=== PATIENT | female | born 1965 | race Caucasian/White ===

== ENCOUNTER → 2020-07-23 08:12 | Outpatient (BNVA) | payer BC, OTHER, SELFPAY | PROVIDERS: PCP Physician Assistant; Referring Provider Physician Assistant; Visit Provider Physician Assistant | DX: Z76.89 Persons encountering health services in other specified circumstances (principal) ==

== ENCOUNTER 2020-07-24 09:49 | Outpatient (REF) | payer BC, OTHER, SELFPAY ==
[2020-07-24 11:46] LABS: MANUAL DIFF FLAG NO
[2020-07-24 11:51] LABS: Basophils Percent Auto 0.8 % (0-2); Eosinophils Absolute Auto 0.2 X10*3/uL (0.0-0.4); Eosinophils Percent Auto 4.3 % (0-4); Hemoglobin 13.6 g/dl (12.0-16.0); Imm Gran Abs Auto 0.02 X10*3/uL (0.00-0.03); Imm Gran Pct Auto 0.4 % (0.0-0.4); Lymphocytes Absolute Auto 1.7 X10*3/uL (1.2-4.9); Lymphocytes Percent Auto 35.1 % (20-40); Mean Corpuscular HGB Conc 32.4 g/dl (31.0-35.0); Mean Corpuscular Volume 86.4 fL (80-98); Mean Platelet Volume 11.4 fL (9.4-12.3); Monocytes Absolute Auto 0.3 X10*3/uL (0.1-1.2); Monocytes Percent Auto 6.2 % (2-11); Neutrophils Absolute Auto 2.6 X10*3/uL (2.0-8.3); Neutrophils Percent Auto 53.2 % (45-73); Platelet Count 268 X10*3/uL (160-400); Red Blood Count 4.86 X10*6/uL (4.20-5.50); Red Cell Distribution Width 13.3 % (11.0-16.0); White Blood Count 4.8 X10*3/uL (4.8-10.8)
[2020-07-24 12:20] LABS: Estimated Average Glucose 111 mg/dL; Hemoglobin A1C 123.9992 umol/L; Hemoglobin A1c % 5.5 %
[2020-07-24 12:25] LABS: Alanine Aminotransferase 24 U/L (0-31); Albumin Level 4.2 g/dL (3.5-5.0); Alkaline Phosphatase 99 U/L (39-117); Anion Gap 14 (12-20); Aspartate Amino Transferase 21 U/L (5-31); Bilirubin Total 0.4 mg/dL (0.0-1.0); Blood Urea Nitrogen 12 mg/dL (9-16); C Reactive Protein 0.52 mg/dL (< or = 0.50); Calcium 9.2 mg/dL (8.4-10.2); Carbon Dioxide 26 mmol/L (22-29); Chloride 106 mmol/L (96-108); Cholesterol 211 mg/dL; Estimated Glomerular Filt Rate > 60; Glucose Random 78 mg/dL (60-115); HDL Cholesterol 62 mg/dL; Iron 65 mcg/dL (30-160); LDL Cholesterol Calculated 126 mg/dl; Percent Iron Saturation 21 % (15-50); Potassium 4.7 mmol/l (3.3-5.1); Sodium 141 mmol/L (135-145); Total Iron Binding Capacity 305 mcg/dL (228-428); Total Protein 7.1 g/dL (6.5-8.0); Triglycerides 118 mg/dL; Unsaturated Iron Binding 240 ug/dL
[2020-07-24 12:47] LABS: Ferritin 133 ng/mL (10-250)
[2020-07-24 13:36] LABS: Folate 12.3 ng/mL (> or = 4.0); Vitamin B12 339 pg/mL (200-900)
[2020-07-25 22:22] LABS: Insulin Level Total 6.4 uIU/mL
[2020-07-26 23:07] LABS: Calcium (PTHI) 9.2 mg/dL (8.6-10.4); PTHI 59 pg/mL (14-64)
[2020-07-27 16:02] LABS: Zinc 75 mcg/dL (60-130)
[2020-07-28 16:46] LABS: Vitamin A 35 mcg/dL (38-98)
[2020-07-29 10:42] LABS: Vitamin B1 13 nmol/L (8-30)
[2020-07-30 15:57] LABS: Thyrotropin Receptor Antibody <1.00 IU/L (<=2.00)
== END 2020-07-24 09:50 | disposition home or self-care (01) ==
LOC: HO.LAB 09:49
PROVIDERS: PCP Physician Assistant; Visit Provider Physician Assistant
DX: E66.9 Obesity, unspecified (principal)
CPT/HCPCS: 36415; 80053; 80061; 82306; 82607; 82728; 82746; 83036; 83520; 83525; 83540; 83970; 84425; 84590; 84630; 85025; 86140

== ENCOUNTER → 2020-08-23 08:14 | Outpatient (BNVA) | payer BC, OTHER, SELFPAY | PROVIDERS: PCP Physician Assistant; Visit Provider Dietitian, Registered | DX: Z76.89 Persons encountering health services in other specified circumstances (principal) ==

== ENCOUNTER → 2020-09-18 12:33 | Outpatient (BNVA) | payer BC, OTHER, SELFPAY | PROVIDERS: Visit Provider Orthopaedic Surgery | DX: M17.0 Bilateral primary osteoarthritis of knee (principal) | CPT/HCPCS: 20610; J1040 ==

== ENCOUNTER → 2020-09-23 08:12 | Outpatient (BNVA) | payer BC, OTHER, SELFPAY | PROVIDERS: Visit Provider Physician Assistant | DX: Z76.89 Persons encountering health services in other specified circumstances (principal) ==

== ENCOUNTER 2020-12-03 13:40 | Emergency (ER) | payer BC, SELFPAY ==
--- NOTE | ~2020-12-03 | XR_ITS ---
EXAMINATION: XR KNEE, LEFT CLINICAL INFORMATION: Pain. Fall. COMPARISON: None TECHNIQUE: Four views of the left knee. FINDINGS: Bone alignment is normal. No fracture or dislocation is seen. There is arthritis at the medial femoral tibial and patellofemoral joints with joint space narrowing and osteophyte formation. There is a joint effusion. XR/XR knee LT 4V IMPRESSION: No fracture or dislocation. Arthritis and joint effusion.
[2020-12-03 13:42] VITALS: BP 147/88; PULSE 79; RESP 16; TEMP 36.6; O2SAT 98; BMI 38.2
--- NOTE | 2020-12-03 14:54 | ED_ITS ---
HPI - Fall General Chief Complaint: Fall Stated Complaint: fall - leg pain Time Seen by Provider: 12/03/20 14:00 Source: patient Mode of arrival: ambulatory Limitations: no limitations History of Present Illness HPI Narrative: Pleasant 55-year-old female presenting with complaint of left knee pain status post trip and fall on items on the floor at home. States she was bringing groceries and had her dog with her there is a area rug and dog gate issues bringing in the groceries she tripped over this for own forward onto her knee and hands. States she got up was able to ambulate however having pain in the left knee. Denies any other injuries. Denies any striking head. Not on current blood thinners. States she really has pre-existing arthritis in the bilateral knees and left knee hurts more. Denies any other injury and no prodromal symptoms prior to fall. MD complaint: fall Onset (ago): minute(s) Fall from: standing Fall witnessed: no Place fall occurred: home Loss of consciousness: none Prolonged down time: no Symptoms prior to fall: none Context: tripped/slipped Location of injury: other (Left knee) Associated symptoms (after fall): denies Related Data Previous Rx's Medication Instructions Recorded meloxicam 15 mg tablet 15 mg PO DAILY 30 Days #30 tab 11/25/20 Allergies Allergy/AdvReac Type Severity Reaction Status Date / Time No Known Allergies Allergy Unknown Unverified 06/20/20 15:57 [No Known Allergies*] ragweed Allergy Unknown Uncoded 05/27/20 00:00 Review of Systems Review of Systems: Constitutional: No Weight loss, No Fever, No Chills, No Night Sweats, No Fatigue, No Malaise ENT/Mouth: No Hearing loss, No Ear Pain, No Nasal Congestion, No Sinus Pain, No Hoarseness, No sore throat, No Rhinorrhea, No Swallowing Difficulty Eyes: No Eye Pain, No Swelling, No Redness, No Foreign Body, No Discharge, No Vision Changes Cardiovascular: No Chest Pain, No SOB, No Dyspnea on Exertion, No Orthopnea, No Edema, No Palpitations Respiratory: No Cough, No Sputum, No Wheezing, No Smoke Exposure, No Dyspnea Gastrointestinal: No Nausea, No Vomiting, No Diarrhea, No Constipation, No abdominal Pain, No Hematochezia, No Melena Genitourinary: No Hematuria, No Urinary Incontinence, No Urgency, No Flank Pain, No Urinary Flow Changes, No Hesitancy Musculoskeletal: No joint pain, No Myalgias, No Joint Swelling, left knee pain as noted per HPI Skin: No Skin Lesions, No rash Neuro: No Weakness, No Numbness, No Paresthesias, No Loss of Consciousness, No Dizziness, No Headache Psych: No Social Issues Heme/Lymph: No Bruising, No Bleeding,No Lymphadenopathy Endocrine: No Polyuria, No Polydipsia, No Temperature Intolerance Yes all other systems are reviewed and are negative [facility] Past Medical History Medical History Arthritis Benign neoplasm of left breast Ear infection Ectopic GERD (gastroesophageal reflux disease) Obesity (BMI 30-39.9) Seasonal allergies Family History Family History Father No problems noted. Mother No problems noted. Sister Hypertension Social History Social History Smoking Status: Never smoker Advance Directives: Yes Advance Directives Information Provided: Yes Advance Directives on File: No Current occupational status: employed Current occupation: Right Handed Physical Exam Vital Signs: Vital Signs: Last Vital Signs Temp 98 F 12/03/20 13:42 Pulse 79 12/03/20 13:42 Resp 16 12/03/20 13:42 BP 147/88 H 12/03/20 13:42 Pulse Ox 98 12/03/20 13:42 Body Mass Index 38.2 Reviewed Const: General: cooperative and healthy appearing; No acute distress or intoxicated appearing Nutritional Appearance: average body habitus Orientation/consciousness: patient oriented x3 HENMT: Head: Yes normal to inspection Ears: hearing grossly normal bilaterally Eyes: General: appearance normal, both eyes and all related structures Visual Montano: normal visual montano by confrontation Neck: Neck: Yes normal visual inspection, No positive Brudzinski's sign, No positive Kernig's sign and No tender Thyroid: Thyroid normal Chest: Chest palpation & inspection: normal inspection of the chest Resp: Effort & Inspection: normal respiratory effort Auscultation: clear to auscultation bilaterally Cardio: Jugular venous distension: no JVD Rate: regular rate Rhythm: regular rhythm Heart sounds: S1 normal heart sound present and S2 normal heart sound present GI: Inspection: Yes normal to inspection Percussion: Yes normal to percussion Auscultation: normal bowel sounds : General: Yes no CVA tenderness Back/Spine/Pelvis: Back: no CVA tenderness Skin: General skin exam: no rashes or lesions noted Neuro: General: patient oriented x3 Extrem: General: Yes normal to inspection Elbow/forearm/wrist images: 1. Diffuse pain over this area there is a slight ecchymosis area just superior to the patella that is yellowish to blue. Homans negative. Squeeze test within normal limits. Pulses within normals. No edema. Course Course Course Narrative: AP of mechanical fall resulting in left knee injury consistent with contusion/strain x-ray unremarkable. Vince wrap crutches and outpatient follow-up. MDM - Fall Medical Records Attestation: I reviewed the patient's medical records. Lab Data Attestation: I reviewed the patient's lab results. Imaging Data left knee x-ray: Radiologist's impression: [address] [address]KThd ReportSigned Patient: Loren McphersonMR#: [id number]: 1965Acct:[id number]/Sex: 55 / FADM Date: 12/03/20Loc: [email or web address].EDAttending Dr: Ordering Physician: Kate Sampson DO Date of Service: 12/03/20 Procedure(s): XR knee LT 4V Accession Number(s): [id number] cc: Kate Sampson DO~ EXAMINATION: XR KNEE, LEFT CLINICAL INFORMATION: Pain. Fall. COMPARISON: None TECHNIQUE: Four views of the left knee. FINDINGS: Bone alignment is normal. No fracture or dislocation is seen. There is arthritis at the medial femoral tibial and patellofemoral joints with joint space narrowing and osteophyte formation. There is a joint effusion. XR/XR knee LT 4V IMPRESSION: No fracture or dislocation. Arthritis and joint effusion. Dictated By:SABINO WILCOXigned By:<Electronically signed by SABINO WILCOX MD in OV>12/03/20 1427 DD/ 1400TD/TT: Senior Research Fellow: ELENITA Discharge Plan Discharge Clinical Impression: Fall from slip, trip, or stumble Qualifiers: Encounter type: initial encounter Qualified Code(s): W01.0XXA - Fall on same level from slipping, tripping and stumbling without subsequent striking against object, initial encounter Contusion of knee, left Qualifiers: Encounter type: initial encounter Qualified Code(s): S80.02XA - Contusion of left knee, initial encounter Patient Disposition: Home, Self-Care Instructions: Knee Pain (ED), Fall Prevention (ED) Additional Instructions: The x-ray does not show any evidence of acute bony fracture There is arthritis and slight effusion At this time Vince wrap, crutches for comfort Ice Naproxen for pain discomfort Gradually increase weight-bearing with crutches as tolerated Follow-up with orthopedics as needed Thank you Prescriptions: No Action meloxicam 15 mg tablet 15 mg PO DAILY 30 Days Qty: 30 RF: 1 Referrals: Yun iRggins MD [Physician] - 1 week Interventions: ED Discharge Assessment Last Done: 12/03/20 15:23 Discharge Date/Time: 12/03/20 15:23
== END 2020-12-03 15:23 | disposition home or self-care (01) ==
PROVIDERS: Emergency Provider Emergency Medicine; PCP Physician Assistant
DX: S80.02XA Contusion of left knee, initial encounter (principal); W18.31XA Fall on same level due to stepping on an object, initial encounter; Y93.89 Activity, other specified; Y92.019 Unspecified place in single-family (private) house as the place of occurrence of the external cause; Y99.9 Unspecified external cause status
CPT/HCPCS: 73564; 99283

== ENCOUNTER 2022-02-25 15:26 | Outpatient (REF) | payer BC, SELFPAY ==
[2022-02-25 16:10] LABS: Hematocrit 40.3 % (37.0-47.0); Hemoglobin 13.1 g/dl (12.0-16.0); Mean Corpuscular HGB Conc 32.5 g/dl (31.0-35.0); Mean Corpuscular Hemoglobin 27.8 pg (27.0-33.0); Mean Corpuscular Volume 85.4 fL (80.0-98.0); Mean Platelet Volume 11.3 fL (9.4-12.3); Platelet Count 289 X10*3/uL (160-400); Red Blood Count 4.72 X10*6/uL (4.20-5.50); Red Cell Distribution Width 13.7 % (11.0-16.0); White Blood Count 7.8 X10*3/uL (4.8-10.8)
[2022-02-25 16:27] LABS: Anion Gap 12 (12-20); Blood Urea Nitrogen 17 mg/dL (9-16); Calcium 9.5 mg/dL (8.4-10.2); Carbon Dioxide 26 mmol/L (22-29); Chloride 108 mmol/L (96-108); Estimated Glomerular Filt Rate > 60; Glucose Random 95 mg/dL (60-115); Iron 57 mcg/dL (30-160); Percent Iron Saturation 18 % (15-50); Potassium 4.1 mmol/L (3.3-5.1); Sodium 142 mmol/L (135-145); Total Iron Binding Capacity 310 mcg/dL (228-428); Unsaturated Iron Binding 253 ug/dL
[2022-02-25 16:51] LABS: Vitamin D 25-OH Total 32.4 ng/mL (>30)
[2022-02-25 17:04] LABS: Vitamin B12 575 pg/mL (200-900)
[2022-02-26 15:02] LABS: Calcium (PTHI) 9.4 mg/dL (8.6-10.4); PTHI 55 pg/mL (16-77)
[2022-02-27 05:02] LABS: Lyme Abs Screen <0.90 index
[2022-03-03 19:32] LABS: Vitamin A 32 mcg/dL (38-98)
== END 2022-02-25 15:27 | disposition home or self-care (01) ==
LOC: HO.LAB 15:26
PROVIDERS: PCP Physician Assistant; Visit Provider Physician Assistant
DX: F32.A Depression, unspecified (principal); R53.83 Other fatigue; E53.8 Deficiency of other specified B group vitamins; D50.9 Iron deficiency anemia, unspecified
CPT/HCPCS: 36415; 80048; 82306; 82607; 82746; 83540; 83735; 83970; 84590; 85027; 86617; 86618

== ENCOUNTER 2022-06-14 11:18 | Emergency (ER) | payer BC, SELFPAY ==
[2022-06-14 11:20] VITALS: BP 137/74; PULSE 76; RESP 18; TEMP 37.2; O2SAT 97; BMI 37.4
--- NOTE | 2022-06-14 11:38 | ED_ITS ---
HPI - General Adult General Chief complaint: General Medical Stated complaint: Ear infection/Belly button infection? Time Seen by Provider: 06/14/22 11:38 Source: patient Mode of arrival: ambulatory Limitations: no limitations History of Present Illness HPI narrative: Patient is a 57 year old female presenting to the emergency department today feeling generally unwell after returning from a trip to [facility] and the [facility]. Patient states that she just returned from traveling yesterday and was feeling generally unwell. Patient states that she had a positive COVID-19 test at home. Patient states that her left ear is bothering her and her belly button seems to be infected. Patient denies any dizziness, lightheadedness, abdominal pain, nausea, vomiting, fever, chills, blurry vision, double vision, loss of vision, chest pain, difficulty breathing, shortness of breath, back pain, night sweats, pain with urination, increased urinary frequency, increased urinary urgency, blood in her urine or stool, syncope or a near syncopal episode, recent trauma or falls, bowel incontinence, bladder incontinence, bowel retention, bladder retention, or any other complaints at this time.? Onset (ago): day(s) (1) Severity: mild Severity scale (1-10): 1 Relieving factors: none Exacerbating factors: none Associated symptoms: denies other symptoms Treatments prior to arrival: none Related Data Previous Rx's Medication Instructions Recorded lorazepam 0.5 mg tablet 0.5 mg PO BID anxiety 4 days #8 12/30/21 tabs meloxicam 15 mg tablet 15 mg PO DAILY 30 days #30 tabs 12/30/21 fluconazole 150 mg tablet 150 mg PO Q3D 2 doses #2 tabs 06/14/22 (Diflucan) terbinafine HCl 1 % topical cream 1 appl topical BID #15 grams 06/14/22 (Lamisil AT) Allergies Allergy/AdvReac Type Severity Reaction Status Date / Time No Known Allergies Allergy Unknown Verified 02/25/22 14:46 [No Known Allergies*] ragweed Allergy Unknown Allergic Uncoded 02/25/22 14:46 rhinitis Review of Systems Constitutional: Constitutional: Reports no additional constitutional complaints, Denies chills, Denies fever(s) and Denies night sweats Eyes: Eyes: Reports no additional eye complaints, Denies blurry vision, Denies change in vision, Denies diplopia, Denies eye discharge, Denies loss of vision and Denies eye pain ENT: Denies dizziness Comments: left ear pain Cardiovascular: Cardiovascular: Reports no additional cardiovascular complaints, Denies chest pain, Denies lightheadedness, Denies Loss of Consciousness and Denies dyspnea Respiratory: Respiratory: Reports no additional respiratory complaints and Denies dyspnea Gastrointestinal: Gastrointestinal: Reports no additional gastrointestinal complaints, Denies abdominal pain, Denies melena, Denies hematochezia, Denies change in bowel habits and Denies change in stool character Genitourinary: Genitourinary: Denies hematuria, Denies urinary frequency, Denies dysuria, Denies urinary incontinence, Denies urinary hesitancy and Denies urinary urgency Musculoskeletal: Musculoskeletal: Reports no additional musculoskeletal complaints, Denies numbness and Denies tingling Integumentary/Breasts: Comments: possible belly button infection Neurologic: Denies dizziness, Denies loss of vision, Denies numbness and Denies tingling Psychiatric: Psychiatric: Reports no additional psychiatric complaints Endocrine: Endocrine: Reports no additional endocrine complaints Hematologic/Lymphatic: Hematologic/Lymphatic: Reports no additional hematologic/lymphatic complaints Allergic/Immunologic: Allergic/Immunologic: Reports no additional allergic/immunologic complaints [facility] Past Medical History Attestation statement: The following information was validated with the patient. Source: old records reviewed Medical History Arthritis Benign neoplasm of left breast Ear infection Ectopic GERD (gastroesophageal reflux disease) Obesity (BMI 30-39.9) Seasonal allergies Family History Family History Father No problems noted. Mother No problems noted. Sister Hypertension Social History Social History Housing: House Patient Tobacco Use Status: Never used Tobacco e-Cigarette/Vaping Use: Never Used Advance Directives: Yes Advance Directives Information Provided: Yes Advance Directives on File: No Current occupational status: employed Current occupation: Right Handed Cognitive needs: No Hearing needs: No Vision needs: Yes Physical Exam ED Vital Signs: Vital Signs - 24 hr 06/14/22 11:20 Temperature 98.9 F Pulse Rate 76 Respiratory Rate 18 Blood Pressure 137/74 Pulse Oximetry 97 Oxygen Delivery Method Room Air BMI result Body Mass Index 37.4 Const General: cooperative, no acute distress, alert and awake Nutritional Appearance: well nourished Orientation/consciousness: patient oriented x3 Limitations: no limitations HENMT Head: Yes normal to inspection and Yes atraumatic Ears: hearing grossly normal bilaterally, external ears normal and TM's normal bilaterally General nose exam: Normal external nose present, no nasal discharge noted and no epistaxis Face and sinus: Yes normal facial exam, No abrasion and No laceration Mouth: Normal oral and palatal mucosa present, no drooling and no muffled voice Eyes General: appearance normal, both eyes and all related structures Periorbital: periorbital findings normal Eyelids: Yes eyelids normal Conjunctivae: conjunctivae normal Pupils: Equal, round and reactive pupils present EOM: EOMs intact bilaterally Neck Neck: Yes normal visual inspection, Yes full ROM and Yes no lymphadenopathy Chest Chest palpation & inspection: normal inspection of the chest Resp Effort & Inspection: normal respiratory effort and able to speak in complete sentences Auscultation: clear to auscultation bilaterally Cardio Rate: regular rate Rhythm: regular rhythm GI Inspection: Yes normal to inspection Skin Other: erythema to the inside of the umbilicus Neuro General: patient oriented x3 and moves all extremities Cranial nerves: Yes Equal, round and reactive pupils present Cognition (Neuro): normal cognition Motor exam (neuro): 5/5 motor strength present throughout Sensory Exam: Normal double simultaneous stimulation for sensation Coordination: [id number] test normal Extrem General: Yes normal to inspection, Yes full ROM and Yes capillary refill normal Psych Appearance: grossly normal Mental Status: mental status grossly normal Affect: normal affect Attitude: cooperative Thought process: Normal thought process present Thought content: Normal thought content present Insight: Good insight present (Psych) Medical Decision Making [facility] Narrative Medical decision making narrative: Patient is a 57 year old female presenting to the emergency department today feeling generally unwell, left ear pain, and a possible umbilicus infection. Patient's physical exam did some erythema of the umbilicus consistent with a yeast infection. Patient's HEENT exam was normal. Patient's rapid COVID-19 test was positive. I explained my physical exam findings as well as all test results to the patient. I answered all questions asked by the patient. I stressed the importance of the patient taking her medication as prescribed. I stressed the importance of the patient following up with her primary care provider. I str essed the importance of the patient returning to the emergency department immediately if her symptoms were to worsen or if she were to develop any dizziness, shortness of breath, difficulty breathing, chest pain, blurry vision, loss of vision, nausea, vomiting, abdominal pain, fever, chills, back pain, or any other complaints. Patient verbalized agreement and understanding with this treatment plan and discharge. Medical Records Medical records reviewed: Yes I reviewed the patient's medical records. Lab Data Lab results reviewed: Yes I reviewed the patient's lab results. Labs: Lab Results 06/14/22 Range/Units 11:31 COVID-19 (REE) Positive A (Negative) COVID-19 Clin Com See Note Discharge Plan Discharge Clinical Impression: COVID-19, Yeast infection Patient Disposition: Home, Self-Care Instructions: Yeast Infection (ED), COVID-19 (Coronavirus Disease 2019) (ED) Additional Instructions: Follow up with your primary care provider. Return to the emergency department immediately if your symptoms worsen or if you develop any dizziness, shortness of breath, difficulty breathing, chest pain, blurry vision, loss of vision, nausea, vomiting, abdominal pain, fever, chills, back pain, or any other complaints. Prescriptions: New fluconazole [Diflucan] 150 mg tablet 150 mg PO Q3D Qty: 2 0RF terbinafine HCl [Lamisil AT] 1 % cream 1 appl topical BID Qty: 15 0RF No Action lorazepam 0.5 mg tablet 0.5 mg PO BID 4 Days Qty: 8 0RF meloxicam 15 mg tablet 15 mg PO DAILY 30 Days Qty: 30 1RF Referrals: Jon Maldonado PA-C [Primary Care Provider] - Stand Alone Forms: Work/School Release Interventions: ED Discharge Assessment Last Done: 06/14/22 12:31 Discharge Date/Time: 06/14/22 12:32 Print Language: Angolan
[2022-06-14 12:08] LABS: COVID-19 Test Positive (Negative); IDNOW Serial# 16C4AD1C
== END 2022-06-14 12:32 | disposition home or self-care (01) ==
PROVIDERS: Emergency Provider Emergency Medicine; PCP Physician Assistant
DX: U07.1 COVID-19 (principal); Z79.899 Other long term (current) drug therapy
CPT/HCPCS: 87635; 99282

== ENCOUNTER 2023-01-18 10:13 | Outpatient (REF) | payer BC, SELFPAY ==
[2023-01-18 12:34] LABS: Alanine Aminotransferase 17 U/L (0-31); Albumin Level 4.2 g/dL (3.5-5.0); Alkaline Phosphatase 108 U/L (39-117); Anion Gap 12 (12-20); Aspartate Amino Transferase 16 U/L (5-31); Bilirubin Total 0.7 mg/dL (0.0-1.0); Blood Urea Nitrogen 18 mg/dL (9-16); Calcium 9.5 mg/dL (8.4-10.2); Carbon Dioxide 26 mmol/L (22-29); Chloride 107 mmol/L (96-108); Cholesterol 211 mg/dL; Estimated Glomerular Filt Rate > 60; Glucose Fasting 86 mg/dL (60-99); HDL Cholesterol 63 mg/dL; LDL Cholesterol Calculated 123 mg/dl; Magnesium 1.7 mg/dL (1.6-2.6); Potassium 4.7 mmol/L (3.3-5.1); Sodium 140 mmol/L (135-145); Total Protein 6.7 g/dL (6.5-8.0); Triglycerides 128 mg/dL
[2023-01-18 12:43] LABS: Folate 9.8 ng/mL (> or = 4.0); TSH reflex Free T4 1.73 uIU/mL (0.32-4.0); Vitamin B12 582 pg/mL (200-900); Vitamin D 25-OH Total 36.2 ng/mL (>30)
[2023-01-24 23:44] LABS: Vitamin A 38 mcg/dL (38-98)
== END 2023-01-18 10:14 | disposition home or self-care (01) ==
LOC: HO.LAB 10:13
PROVIDERS: PCP Physician Assistant; Visit Provider Physician Assistant
DX: Z13.29 Encounter for screening for other suspected endocrine disorder (principal); Z13.220 Encounter for screening for lipoid disorders; E53.8 Deficiency of other specified B group vitamins; E66.9 Obesity, unspecified; F32.9 Major depressive disorder, single episode, unspecified
CPT/HCPCS: 36415; 80053; 80061; 82306; 82607; 82746; 83735; 84443; 84590

== ENCOUNTER 2024-01-27 19:39 | Emergency (ER) | payer BC, SELFPAY ==
[2024-01-27 19:57] VITALS: BP 148/87; PULSE 67; RESP 16; TEMP 36.1; O2SAT 100; BMI 37.9
--- NOTE | 2024-01-27 19:57 | ED.GENADULT ---
HPI - General Adult General Chief complaint: Headache Stated complaint: headache ? high blood pressure Time Seen by Provider: 01/28/24 00:30 Source: patient, RN notes reviewed and old records reviewed Mode of arrival: ambulatory Limitations: no limitations History of Present Illness HPI narrative: 59-year-old female who denies any significant past medical history presents for evaluation of high blood pressure and ?feeling like I was going to pass out. ? Patient reports that she was on a work call yesterday. She states that she started to feel lightheaded and like her heart was racing She felt as though she was going to pass out Patient reports this has happened in the past and ?they told me I had some type of tachycardia and to massage my neck if it happened again. Therefore the patient reports that she was massaging the right side of her neck and her symptoms did improve She also complains of a headache over the last 2 days She took aspirin with good relief of her headache Patient denies any known history of high blood pressure but states that her blood pressures have been elevated over last few days Denies any chest pain Today she had not have any symptoms of near-syncope or family she was born to pass out but when she called her doctor there were no appointments, so she was referred to the ER Related Data Previous Rx's ?Medication ?Instructions ?Recorded amoxicillin 875 mg-potassium 1 tab PO BID 5 days #10 tabs 12/23/22 clavulanate 125 mg tablet mupirocin 2 % topical ointment 1 appl topical BID 15 days #22 12/23/22 grams meloxicam 15 mg tablet 15 mg PO DAILY 30 days #30 tabs 07/05/23 cefuroxime axetil 250 mg tablet 250 mg PO BID #10 tabs 01/28/24 Allergies Allergy/AdvReac Type Severity Reaction Status Date / Time ragweed Allergy Unknown Allergic Uncoded 01/27/24 20:01 rhinitis Review of Systems Constitutional: Constitutional: Denies body ache(s), Denies chills and Denies fever(s) Eyes: Eyes: Denies blurry vision ENT: Denies sore throat Cardiovascular: Cardiovascular: Denies chest pain, Reports lightheadedness, Reports palpitations and Denies dyspnea Respiratory: Respiratory: Denies cough and Denies dyspnea Gastrointestinal: Gastrointestinal: Denies abdominal pain, Denies nausea and Denies vomiting Musculoskeletal: Musculoskeletal: Denies back pain Integumentary/Breasts: Skin/Breast: Denies rash Endocrine: Endocrine: Reports palpitations PMFSH Past Medical History Medical History Arthritis Benign neoplasm of left breast Ear infection Ectopic GERD (gastroesophageal reflux disease) Obesity (BMI 30-39.9) Seasonal allergies Family History Family History Father No problems noted. Mother No problems noted. Sister Hypertension Social History Social History Housing: House Patient Tobacco Use Status: Never used Tobacco Smoked in Last 30 Days: No e-Cigarette/Vaping Use: Never Used Advance Directives: No Advance Directives Information Provided: No Do you have a plan to hurt others: No Plan Current occupational status: employed Current occupation: Right Handed Cognitive needs: No Hearing needs: No Vision needs: Yes Physical Exam ED Vital Signs: Vital Signs - 24 hr 01/27/24 19:57 01/27/24 23:47 01/28/24 01:15 Temperature 96.9 F 98 F Pulse Rate 67 63 52 Respiratory Rate 16 18 Blood Pressure 148/87 H 147/95 H 154/80 H Pulse Oximetry 100 98 Oxygen Delivery Method Room Air Room Air 01/28/24 01:15 01/28/24 01:17 Temperature Pulse Rate 57 70 Respiratory Rate Blood Pressure 161/88 H 150/95 H Pulse Oximetry Oxygen Delivery Method BMI result Body Mass Index 37.9 Const General: healthy appearing, comfortable, no acute distress, alert and awake Nutritional Appearance: well nourished Orientation/consciousness: patient oriented x3 HENMT Head: Yes normocephalic and Yes atraumatic Eyes Eyelids: Yes eyelids normal Conjunctivae: conjunctivae normal Sclerae: sclerae normal Corneas: corneas normal Pupils: Equal, round and reactive pupils present EOM: EOMs intact bilaterally Neck Neck: Yes full ROM Resp Effort & Inspection: normal respiratory effort, able to speak in complete sentences, no audible wheezes and not labored Auscultation: clear to auscultation bilaterally Cardio Rate: regular rate Rhythm: regular rhythm GI Inspection: No distended Palpation (GI): Soft to palpation, not firm, nontender, no guarding and not rigid Auscultation: normoactive bowel sounds Skin General skin exam: elasticity normal Neuro General: patient oriented x3 Cranial nerves: Yes Equal, round and reactive pupils present and Yes Bilaterally intact EOM present Cognition (Neuro): normal cognition Extrem Other: Moving all extremities well without any obvious deformities Course Course Course Narrative: This is a rapid medical exam: Additional HPI, ROS, PE not included below will be deferred to primary provider. Patient is a 59-year-old female presenting to the emergency department with complaint of headache, episodes of HTN, just bought BP monitor yesterday. Has been taking ASA because she's heard to take that if you think you're having a heart attack. Also reports some anxiety. BP mildly elevated in triage. Plan: EKG, labs, viral swabs Reevaluation(s) Reevaluation #1: Patient's UA does show a small amount of blood, 2+ leukocyte esterase and 21-50 white blood cells with no epithelial cells to suggest contamination. She is symptomatic with frequent urination. We will treat as a UTI Time: 01:30 Medical Decision Making Medical Decision Making MDM Narrative: 59-year-old female presents for evaluation of a near syncopal episode that happened over 24 hours ago. Currently she is asymptomatic except for a mild headache. She is neurologically intact. She denies any chest pain. Patient's EKG shows normal sinus rhythm with a rate of 60 beats minute. No ectopy, no ischemic changes. Patient's workup is largely unremarkable, her hematologic indices show no leukocytosis or anemia. Normal platelet count. There is no left shift. Her chemistries show no significant electrolyte abnormalities. Her BUN is slightly elevated to 18 which is consistent where it was about a year ago. Creatinine is 0.78 and GFR is greater than 60. Patient's troponin is less than 2.7 and she is not experiencing chest pain. LFTs within normal limits. The patient also had viral swabs which were negative. I did orthostatics and her vital signs showed a slight increase in her heart rate. Her blood pressures remain largely unchanged. I did discuss IV fluids for the orthostatic tachycardia but the patient declines. She would like to go home at this time and she will hydrate orally. The patient will be referred to Cardiology as she reports this is not the 1st tetanus has happened Differential Diagnosis Differential Diagnoses: The differential diagnosis associated with the presentation includes Near syncope Syncope Arrhythmia Orthostasis Lab Data [facility] Lab Attestation statement: I reviewed the patient's lab results. See above 01/27/24 20:13 01/27/24 20:13 Labs: Lab Results 01/27/24 01/27/24 Range/Units 20:13 23:51 WBC 8.6 (4.8-10.8) X10*3/uL RBC 5.30 (4.20-5.50) X10*6/uL Hgb 14.3 (12.0-16.0) g/dl Hct 43.9 (37.0-47.0) % MCV 82.8 (80.0-98.0) fL MCH 27.0 (27.0-33.0) pg MCHC 32.6 (31.0-35.0) g/dl RDW 14.0 (11.0-16.0) % Plt Count 294 (160-400) X10*3/uL MPV 10.8 (9.4-12.3) fL Immature Gran % (Auto) 0.5 H (0.0-0.4) % Neut % (Auto) 66.4 (45-73) % Lymph % (Auto) 26.0 (20-40) % [place] % (Auto) 5.9 (2-11) % Eos % (Auto) 0.5 (0-4) % Baso % (Auto) 0.7 (0-2) % Lymph # (Auto) 2.2 (1.2-4.9) X10*3/uL [place] # (Auto) 0.5 (0.1-1.2) X10*3/uL Eos # (Auto) 0.0 (0.0-0.4) X10*3/uL Baso # (Auto) 0.1 (0.0-0.2) X10*3/uL Abs Immat Gran (auto) 0.04 H (0.00-0.03) X10*3/uL Absolute Neuts (auto) 5.7 (2.0-8.3) x10*3/uL Absolute Nucleated RBC 0.000 (0.0-0.012) X10*3/uL Nucleated RBC % (auto) 0.0 (0.0-0.2) /100WBC Sodium 140 (135-145) mmol/L Potassium 4.3 (3.3-5.1) mmol/L Chloride 104 (96-108) mmol/L Carbon Dioxide 27 (22-29) mmol/L Anion Gap 13 (12-20) BUN 18 H (9-16) mg/dL Creatinine 0.78 (0.5-1.4) mg/dL Estim Creat Clear Calc 88.2 Estimated GFR > 60 Random Glucose 92 (60-115) mg/dL Calcium 9.6 (8.4-10.2) mg/dL Total Bilirubin 0.4 (0.0-1.0) mg/dL AST 12 (5-31) U/L ALT 15 (0-31) U/L Alkaline Phosphatase 97 (39-117) U/L Troponin I High Sens < 2.7 (<3.5-17.0) ng/L Total Protein 7.2 (6.5-8.0) g/dL Albumin 4.2 (3.5-5.0) g/dL Urine Color Yellow Urine Appearance Clear Urine pH 5.0 (5.0-9.0) Ur Specific [place] 1.020 (1.005-1.025) Urine Protein Negative (Neg-Trace) mg/dL Urine Glucose (UA) Negative (Negative) mg/dL Urine Ketones Trace (Negative) mg/dL Urine Blood Trace H (Negative) Urine Nitrite Negative (Negative) Ur Leukocyte Esterase Moderate (2+) H (Negative) Urine RBC 0-2 (0-2) /HPF Urine WBC 21-50 H (0-5) /HPF Ur Squamous Epith Cells 0-2 (0-2) /HPF Urine Bacteria None Seen (None Seen) Hyaline Casts 0-2 (0-2) /LPF Influenza Type A (PCR) NEGATIVE (Negative) Influenza Type B (PCR) NEGATIVE (Negative) RSV RNA Qual (PCR) NEGATIVE (Negative) SARS-CoV-2 RNA (RT-PCR) NEGATIVE (Negative) Independent Interpretation I performed an independent interpretation of an: EKG Interpretation: See above Discharge Plan Discharge Clinical Impression: Near syncope, Urinary tract infection Patient Disposition: Home, Self-Care Instructions: Urinary Tract Infection in Women (ED), Near Syncope (ED) Additional Instructions: Your workup in the ER today was reassuring. This includes your blood work, EKG. Your urine sample did show a UTI Take the cefuroxime twice daily for 5 days I recommend increasing fluid intake Follow-up with your primary doctor I put in a referral to Cardiology, call tomorrow to make an appointment for near-syncope Prescriptions: New cefuroxime axetil 250 mg tablet 250 mg PO BID Qty: 10 0RF No Action mupirocin 2 % ointment 1 appl topical BID 15 Days Qty: 22 0RF amoxicillin-pot clavulanate 875-125 mg tablet 1 tab PO BID 5 Days Qty: 10 0RF meloxicam 15 mg tablet 15 mg PO DAILY 30 Days Qty: 30 1RF Referrals: Gino Tom MD [Physician] - (near syncope) Print Language: [place] African
--- NOTE | 2024-01-27 20:00 | ECG_ITS ---
Test Reason : MIGRAINE Blood Pressure : / mmHG Vent. Rate : 060 BPM Atrial Rate : 060 BPM P-R Int : 138 ms QRS Dur : 078 ms QT Int : 388 ms P-R-T Axes : 047 050 028 degrees QTc Int : 388 ms Normal sinus rhythm Normal ECG When compared to the previous EKG of No significant changes seen Referred By: Neela Lee Electronically Signed By:NICKI MILLER MD
[2024-01-27 20:18] LABS: MANUAL DIFF FLAG NO
[2024-01-27 20:25] LABS: Basophils Absolute Auto 0.1 X10*3/uL (0.0-0.2); Basophils Percent Auto 0.7 % (0-2); Eosinophils Percent Auto 0.5 % (0-4); Hematocrit 43.9 % (37.0-47.0); Hemoglobin 14.3 g/dl (12.0-16.0); Imm Gran Abs Auto 0.04 X10*3/uL (0.00-0.03); Imm Gran Pct Auto 0.5 % (0.0-0.4); Lymphocytes Absolute Auto 2.2 X10*3/uL (1.2-4.9); Mean Corpuscular HGB Conc 32.6 g/dl (31.0-35.0); Mean Corpuscular Volume 82.8 fL (80.0-98.0); Mean Platelet Volume 10.8 fL (9.4-12.3); Monocytes Absolute Auto 0.5 X10*3/uL (0.1-1.2); Monocytes Percent Auto 5.9 % (2-11); Neutrophils Absolute Auto 5.7 x10*3/uL (2.0-8.3); Neutrophils Percent Auto 66.4 % (45-73); Platelet Count 294 X10*3/uL (160-400); White Blood Count 8.6 X10*3/uL (4.8-10.8)
[2024-01-27 20:38] LABS: Alanine Aminotransferase 15 U/L (0-31); Albumin Level 4.2 g/dL (3.5-5.0); Alkaline Phosphatase 97 U/L (39-117); Anion Gap 13 (12-20); Aspartate Amino Transferase 12 U/L (5-31); Bilirubin Total 0.4 mg/dL (0.0-1.0); Blood Urea Nitrogen 18 mg/dL (9-16); Calcium 9.6 mg/dL (8.4-10.2); Carbon Dioxide 27 mmol/L (22-29); Chloride 104 mmol/L (96-108); Glucose Random 92 mg/dL (60-115); Potassium 4.3 mmol/L (3.3-5.1); Sodium 140 mmol/L (135-145); Total Protein 7.2 g/dL (6.5-8.0)
[2024-01-27 20:51] LABS: Creatinine Clr Calc Pharmacy 88.2; Estimated Glomerular Filt Rate > 60; Troponin-I High Sensitivity < 2.7 ng/L (<3.5-17.0)
[2024-01-27 20:57] LABS: Influenza A PCR NEGATIVE (Negative); Influenza B PCR NEGATIVE (Negative); Resp Syncy Virus RNA Qual PCR NEGATIVE (Negative); SARS COV2 PCR INHOUSE NEGATIVE (Negative)
[2024-01-27 23:47] VITALS: BP 147/95; PULSE 63; RESP 18; TEMP 36.6; O2SAT 98
[2024-01-28 00:04] LABS: Appearance Urine Clear; Color Urine Yellow; Glucose Urine UA Negative (Negative); Leukocyte Esterase Urine Moderate (2+) (Negative); Nitrite Urine Negative (Negative); UMIC TRIGGER UACC YES; Urine Blood Trace (Negative); Urine Ketones Trace mg/dL (Negative); Urine Protein Negative (Neg-Trace)
--- OUTSIDE RECORDS SUMMARY | 2024-01-28 00:07 | XMS_ITS | Continuity of Care Document ---
Author Organization [facility] ter Address [address] [place] [id number]- Care Team Providers Care Early [employer] Teacher Name Role Phone Jon Henley Primary Care Physician [phone] Encounter [facility] [place] Date(s): 03/02/23 - 03/02/[address] [id number] Discharge Disposition: A-D/C Home Attending Physician: Luis A Garnica MD Admitting Physician: Luis A Garnica MD Referring Physician: Luis A Garnica MD Allergies, Adverse Reactions, Alerts Substance Reaction Severity Status Ragweed Active Medications B Complex 100 0 Refills, Maintenance, 05/19/22 11:40:00 EDT, Partial fill upon patient request if the prescription is for a schedule II opioid drug. Start Date: 05/19/22 Status: Ordered Meloxicam Daily, 0 Refills, Maintenance, 05/19/22 11:39:00 EDT, Partial fill upon patient request if the prescription is for a schedule II opioid drug. Start Date: 05/19/22 Status: Ordered Nexium 40 mg oral enteric coated capsule 1 capsule = 40 mg, By Mouth, Daily, prn, # 30 capsule, 0 Refills, Maintenance, 08/08/12 12:32:04 EST, EC Capsule Start Date: 08/08/12 Status: Ordered Vitamin A = 50,000 International_Units, Intramuscular, Daily, 0 Refills, Maintenance, 05/19/22 11:39:00 EDT, Partial fill upon patient request if the prescription is for a schedule II opioid drug. Start Date: 05/19/22 Status: Ordered Vitamin D3 400 intl units oral capsule 1 capsule = 10 mcg, By Mouth, Daily, 0 Refills, Maintenance, 05/19/22 11:39:00 EDT, Partial fill upon patient request if the prescription is for a schedule II opioid drug. Start Date: 05/19/22 Status: Ordered Problem List Condition Confirmation Course Effective Dates Status Health St atus Informant Obese class II Confirmed Active Vital Signs Most recent to oldest [Reference Range]: 1 2 3 Height 162.6 cm (03/02/23 12:56 PM) Weight 99.3 kg (03/02/23 12:56 PM) Oxygen Saturation [94-100 %] 96 % (03/02/23 2:29 PM) 97 % (03/02/23 2:25 PM) 99 % (03/02/23 2:20 PM) Pulse Rate [55-90 bpm] 81 bpm (03/02/23 12:56 PM) Body Mass Index [18.5-24.99 kg/m2] 37.56 kg/m2 *>HHI* (03/02/23 12:56 PM) Blood Pressure [90-138/55-84 mm Hg] 124/77mm Hg (03/02/23 2:29 PM) 127/76mm Hg (03/02/23 2:25 PM) 118/70mm Hg (03/02/23 2:20 PM) Respiratory Rate [16-30 br/min] 17 br/min (03/02/23 2:29 PM) 16 br/min (03/02/23 2:25 PM) 18 br/min (03/02/23 2:20 PM) Temperature [96.8-100.4 DegF] 96.4 DegF *L* (03/02/23 12:56 PM) Mode of Delivery (Oxygen) Room air (03/02/23 2:29 PM) Room air (03/02/23 2:25 PM) Room air (03/02/23 2:20 PM) Blood pressure sites Arm, left (03/02/23 12:56 PM) Temperature Route Temporal (03/02/23 12:56 PM) Weight Obtained Via Patient/family state d (03/02/23 12:56 PM) Social History Social History Type Response Smoking Status Never smoker entered on: 05/03/16 Sex Note * Chloe Farris RN: PERFORM Event Display: Discharge/Transfer Note Hospital Authored Date: [id number] Nursing Discharge Note Entered On: 03/02/2023 14:19 EDT Performed On: 03/02/2023 14:19 EDT by Chloe Farris RN Nursing Discharge Note 2 Discharge Time : 03/02/2023 15:00 EDT Chloe Farris RN - 03/02/2023 15:01 EDT Discharge Level of Care at Discharge : Home/Care Home/Foster Care Patient Left Unit Via : Wheelchair Patient Accompanied Off Unit with : Responsible adult DC Instructions Provided & Signed by Pt : Yes Patient Understands D/C Instructions : Yes Patient Instructions Discharge Signed : Yes Did Pt have Specialty Bed or Wound Vac : No Chloe Farris RN - 03/02/2023 14:19 EDT * Chloe Farris RN: PERFORM Event Display: Patient Education/Instruction Authored Date: [id number] Inpatient Adult Discharge Instructions [address] [address] Name: CHIP KELLER : 1965 Visit: 03/02/2023 12:39:00 Current Date: 03/02/2023 14:20 Account: [id number] Inpatient Adult Discharge Instructions We would like to thank you for allowing us to assist you with your healthcare needs. The following includes patient education materials and information regarding your injury/illness. Our entire staffstrives to provide an excellent experience for our patients and their families. PLEASE ENSURE YOU FOLLOW-UP PER THE INSTRUCTIONS BELOW! ?? YOUR OPINION IS IMPORTANT TO US! Please complete the survey you may receive by mail or email. Your feedback will be used to make improvements to the healthcare experiences of our patients and their families. Surveys are administered by [employer] ?? If further treatment with your primary care physician or another doctor is recommended, it is important for you to keep the appointment. Call your primary care physician or return to the Emergency Department immediately if your condition worsens, fails to improve, or new symptoms develop. If you need to find a doctor, you can call [facility] [employer] for a referral at [phone] or toll free at [phone] ([phone]) or log in to [email or web address].. ?? You can view and manage your care through the patient portal or by using a health care gay of your choosing. [email or web address] is a website that allows you to securely view your medical information including your hospital discharge summary, office visit summaries, medications and follow-up visits. You can also request appointments, renew medications, and request access to your medical information using a health care gay of your choosing, or just ask a question. You can enroll at [email or web address] or register during your next office visit. You have been discharged from [facility], Patient Care Unit: ENDO. If you have any questions regarding these instructions after you leave, please call us and we will be happy to assist you. [facility] Your Care Team Attending Physician Danika JOHNSON, Luis A Discharging Providers Danika JOHNSON, Luis A Reason for Your Visit HIGH RISK SCREENING Tests Performed Below is a partial list of the tests performed during your hospitalization. You may have had other tests and procedures not included in this list. Please discuss all test results with your provider. Primary Care Provider Jon Henley Advance Directive . Discharge Vitals Temperature:??96.4 DegF??Low Height: 162.6 cm Pulse Rate: 81 bpm Weight: 99.3 kg Respiratory Rate: 17 br/min Body Mass Index:??37.56 kg/m2??Critical Systolic Blood Pressure:??149 mm Hg??High Body surface area: 2.12 Diastolic Blood Pressure:??86 mm Hg??High ?? Oxygen Saturation: 96 % ?? Studies Pending All tests and labs ordered during this hospital stay have been completed unless listed below. Please discuss all pending results with your provider listed above in these instructions. ?? No incomplete studies found What to do next Instructions From Your Doctor Discharge Orders You Need to Schedule the Following Appointments Follow Up with??Jon Henley Where: [address] [place] [address]- Discharge Medications CHIP KELLER :1965 Visit Date:03/02/2023 Medications: Please continue your medications until treatment is completed or stopped by your provider. Medications not listed below should be discontinued. Discuss any questions related to medications with your provider. What How Much When Instructions Next Dose Unchanged Cholecalciferol (Vitamin D3 400 intl units oralcapsule) 1 capsule Oral Daily Unchanged Esomeprazole (Nexium 40 mg oral enteric coated capsule) 1 capsule Oral Daily prn ?? Unchanged Meloxicam Daily Unchanged Multivitamin (B Complex 100) Unchanged Vitamin A 50,000 International Unit Intramuscular Daily Test Results Below is a partial list of the most recent Laboratory test results done prior to this discharge. You may have had other tests and procedures not included in this list. Please discuss all test resultswith your provider. Allergies (NKA means No Known Allergies) Ragweed Problems Active Problems??(2) advance maternal age?? Obese class II?? Education Materials Below is the list of Educational Leaflet Providered with your Discharge Instructions. Surgery Medical Daystay Surgical Overnight Discharge Instructions?? Valuables and Belongings I fully understand and agree that [facility] accepts no responsibility for all my personal property including clothing, toilet articles, radios, jewelry, dentures, hearing aids, rings, money, or any other property that is in my possession or is brought to me after admission. I understand certain valuables may be placed in a hospital safe for a short period of time. I understand that the hospital is not liable for loss or damage due to accident, fire, or other natural occurrence while said property is in the safe. I accept full responsibility for any personal property that I keep with me, and will not hold the hospital responsible in case of loss or disappearance. I acknowledge that i have been encouraged to send valuables and belongings home. ? Other Discharge Information ? Case Management Discharge Plan?? Discharge Plan?? Discharge Level of Care at Discharge: Home/Care Home/Foster Care ?? Pulmonary Rehab Status?? Pulmonary Rehab Discharge Status?? Respiratory Rate: 17 br/min ? Common Emergency Awareness Tips IS IT A STROKE? Act FAST and Check for these signs: FACE Does the face look uneven? ARM Does one arm drift down? SPEECH Does their speech sound strange? TIME Call at any sign of stroke ?? Heart Attack Signs Chest discomfort: Most heart attacks involve discomfort in the center of the chest and lasts more than a few minutes, or goes away and comes back. It can feel like uncomfortable pressure, squeezing, fullness or pain. Discomfort in upper body: Symptoms can include pain or discomfort in one or both arms, back, neck, jaw or stomach. Shortness of breath: With or without discomfort. Other signs: Breaking out in a cold sweat, nausea, or lightheaded. Remember, MINUTES DO MATTER. If you experience any of these heart attack warning signs, call to get immediate medical attention! ?? Smoking can increase your chances of developing chronic health problems and can cause harmful effects to other family members in your house. If you smoke, you are strongly encouraged to quit. Please call [facility] [employer] at [phone] or [phone] ([phone]) or log in to [email or web address] for referrals to smoking cessation programs. ?? 949 Suicide & Crisis Lifeline is available 26/04 if you or someone you know needs to find a reason to keep living. By calling 891 you'll be connected to a skilled, trained counselor at a crisis center in your area. INPATIENT DISCHARGE INSTRUCTIONS SIGNATURE PAGE ARIANNAGUADALUPECHIP Location:[facility] Registration Date and Time:03/02/2023 12:39 EDT Primary Care Physician: Jon Henley, Attending Physician: Luis A Garnica MD, I CHIP KELLER, have received the above patient education materials/instructions and have verbalized understanding. If ambulance or transport services are being used I further acknowledge being given a choice of service. ?? If you need to contact me, please call me at this number: . Patient/E Commerce Director Name: Patient/E Commerce Director Signature: Relationship to Patient: Witness Name/Signature: Date: * Chloe Farris RN: PERFORM Event Display: Patient Education Leaflets Authored Date: [id number] Surgery Medical Daystay Surgical Overnight Discharge Instructions ?? 295 Medical Daystay/Surgical Overnight Discharge Instructions ? Since your coordination and judgment may be altered by medication and/or anesthesia, a responsible adult must drive you home from the hospital. ? If you have received medication for pain or sedation while under our care, you should not drive, operate machinery, drink alcohol, or sign any legal documents for 24 hours.?? You should have someone with you at home tonight. ? Remain at home the day of discharge.?? You may be up and about unless otherwise instructed by your physician. ? You may resume your daily prescription medication schedule.?? Any depressant medication should be avoided for 24 hours unless otherwise instructed by your surgeon or anesthesiologist. ? Call your physician for a follow-up appointment.? If you experience unusual or severe pain not relied by your pain medication, excessive bleedingor drainage, persistent nausea and vomiting, excessive swelling or redness, foul odor from incisionsite or fever over 100.6F, you need to call your physician. ? A follow-up phone call by a nurse will be made the day after your procedure.?? If you have stayed with us over night, you will not be receiving a follow-up phone call. ? Nausea and vomiting are a common side effect of prescription pain medication.?? We recommend that pills are not taken on an empty stomach.?? While taking any prescription pain medication you should not drive or drink alcohol. ? Patient Care team information Care Team Personnel Name: Jon Henley Position: Reference Physician Member Role: PCP Address: Address: [address] [place] [address]- Care Team Related Persons Name: PREMA KELLER Address: [address] [place] [address] Name: PREMA KELLER Address: [address] [place] [address] Name: SABINO KELLER Name: BRENNEN ROSA Address: home [address] [place] [address]
--- OUTSIDE RECORDS SUMMARY | 2024-01-28 00:07 | XMS_ITS | Continuity of Care Document ---
Author Organization [facility] Address [address] [place] [id number]- Care Team Providers Care Portrait Consultant Name Role Phone Jon Henley Primary Care Physician [phone] Encounter [facility] Date(s): 08/26/22 - 09/25/22 [facility] [address] [place] [address]- [place] Allergies, Adverse Reactions, Alerts Substance Reaction Severity [...] capsule = 40 mg, By Mouth, Daily, # 30 capsule, 0 Refills, Maintenance, EC Capsule Start Date: 08/08/12 Status: Ordered [...] atus Informant Obese class II Confirmed Active Social History Social History Type Response Smoking Status Never smoker entered on: 05/03/16 Sex Patient Care team information Care Team Personnel Name: Jon Henley Position: Reference Physician Member Role: PCP Address: Address: [address] [place] [address]- Care Team Related Persons Name: PREMA KELLER Address: home [address] [place] [id number] Name: PREMA KELLER Address: home [address] [place] [address] Name: SABINO KELLER Name: BRENNEN ROSA Address: home [address] [place] [address]
--- OUTSIDE RECORDS SUMMARY | 2024-01-28 00:07 | XMS_ITS | Continuity of Care Document ---
Author Organization [facility] ter Address [address] [place] [address]- Care Team Providers Care Chief Sales Officer Name Role Phone Jon Henley Primary Care Physician Encounter [place] Date(s): 07/13/23 - 09/10/[address] [address] Attending Physician: Dima Gautam MD Admitting Physician: Dima Gautam MD Referring Physician: Dima Gautam MD Allergies, Adverse Reactions, Alerts Substance Reaction [...] Reference Physician Member Role: PCP Address: Address: [address] [place] [address] [address] [place] [address]- Care Team Related Persons Name: PREMA KELLER Address: home [address] [place] [address] Name: PREMA KELLER Address: home [address] [place] [address] Name: SABINO KELLER Name: BRENNEN ROSA Address: home [address] [place] [address]
--- OUTSIDE RECORDS SUMMARY | 2024-01-28 00:07 | XMS_ITS | Continuity of Care Document ---
Author Organization [facility] Address [address] [place] [address]- Care Team Providers Care Psychiatric Tech Name Role Phone Jon Henley Primary Care Physician [phone] [place] [facility] [place] 02/26/23 - 03/28/23 [facility] [address] [place] [address] [place] Allergies, Adverse Reactions, Alerts Substance Reaction [...] Physician Member Role: PCP Address: Address: [address] [place] [address]- Care Team Related Persons Name: PREMA KELLER Address: home [address] [place] [address] Name: PREMA KELLER Address: [address] [place] [address] Name: SABINO KELLER Name: BRENNEN ROSA Address: home [address] [place] [address]
[2024-01-28 00:13] LABS: Bacteria Urine None Seen (None Seen); Hyaline Casts Urine 0-2 /LPF (0-2); RBC Urine 0-2 /HPF (0-2); Squamous Epithelial Cell Urine 0-2 /HPF (0-2); UACC Culture Trigger YES; WBC Urine 21-50 /HPF (0-5)
[2024-01-28 01:15] VITALS: BP 154/80; BP 161/88; PULSE 52; PULSE 57
[2024-01-28 01:17] VITALS: BP 150/95; PULSE 70
[2024-01-28 01:36] VITALS: BP 150/95; PULSE 70; RESP 18; TEMP 36.9; O2SAT 98
== END 2024-01-28 01:36 | disposition home or self-care (01) ==
PROVIDERS: Registered Nurse Emergency; Emergency Provider Emergency Medicine; PCP Physician Assistant
DX: R55 Syncope and collapse (principal); N39.0 Urinary tract infection, site not specified; R51.9 Headache, unspecified; Z03.818 Encounter for observation for suspected exposure to other biological agents ruled out
CPT/HCPCS: 0241U; 80053; 81001; 81003; 84484; 85025; 87086; 93005; 99283; 99285

== ENCOUNTER → 2024-01-27 20:00 | Outpatient (BNV) | payer BC, SELFPAY | PROVIDERS: Emergency Provider Emergency Medicine; PCP Physician Assistant; Visit Provider Internal Medicine Cardiovascular Disease | DX: I10 Essential (primary) hypertension (principal); R51.9 Headache, unspecified | CPT/HCPCS: 93010 ==

== ENCOUNTER 2024-02-04 14:31 | Outpatient (AMB) | payer BC, SELFPAY ==
[2024-02-04 14:34] VITALS: BP 138/70; PULSE 78; O2SAT 98; BMI 38.9
--- NOTE | 2024-02-04 14:34 | MHC.OFFVIS ---
Vital Signs 02/04/24 14:34 02/04/24 15:22 Height 5 ft 5 in Weight 233 lb 11.04 oz BMI 38.9 BP 138/70 128/80 Blood Pressure Location Lt brachial Lt brachial Position Sitting Sitting Pulse 78 Pulse Source Pulse Oximeter Pulse Oximetry (%) 98 Oxygen Delivery Method Room Air Intake Visit Reasons: [facility]01[facility]/headache ? high blood pressure (NS) Intake Note: [facility] [place] PT FEELS GOOD PT WAS SEEN ER FOR HIGH BP AND HEADACHES Allergies ragweed Allergy (Unknown, Uncoded 01/27/24 20:01) Allergic rhinitis HPI Comments Details: 59-year-old female presents today for a new patient visit. She is here today to discuss having some high blood pressures and 2 episodes of feeling syncopal. She reports recently she has noted her blood pressures at home have been 130s-150s and a increase in headaches. She presents to the emergency room after having a headache and feeling as if she was going to pass out. She checked her blood pressures and it was high so she sought emergency care. She reports she travels a lot for work and it is a high stress job. She has never smoked, rarely drinks alcohol, and denies illicit drug use. She does admit she enjoys junk food and recently had an increase in her weight of about 15 lbs. Her physical acitivity is limited by knee pain - she is considering knee replacements. [facility] Medical History Borderline high blood pressure Seasonal allergies Ear infection Benign neoplasm of left breast Ectopic Arthritis GERD (gastroesophageal reflux disease) Obesity (BMI 30-39.9) Family History Father Prostate cancer Mother No problems noted. Sister Hypertension Colorectal cancer Social History Housing: House Patient Tobacco Use Status: Never used Tobacco e-Cigarette/Vaping Use: Never Used Current occupational status: employed Current occupation: Right Handed Cognitive needs: No Hearing needs: No Vision needs: Yes Review of Systems Const Denies weakness ENT Denies dizziness Card Denies chest pain, Denies chest pain with activity, Denies syncope, Denies rapid heart rate, Denies pedal edema, Denies edema, Denies leg edema, Denies lightheadedness, Denies palpitations, Denies dyspnea, Denies dyspnea on exertion and Denies orthopnea Resp Denies cough, Denies dyspnea and Denies dyspnea on exertion GI Denies hematochezia and Denies change in stool character Musc Denies abnormal gait, Denies muscle cramps, Denies muscle weakness, Denies numbness, Denies radiating pain into limb and Denies tingling Neuro Denies abnormal gait, Denies dizziness, Denies syncope, Denies numbness, Denies tingling and Denies weakness Endo Denies palpitations Physical Exam Vital Signs: Last Vital Signs Pulse 78 02/04/24 14:34 BP 128/80 02/04/24 15:22 Pulse Ox 98 02/04/24 14:34 Oxygen Delivery Method Room Air 02/04/24 14:34 BMI result Body Mass Index 38.9 Const General: healthy appearing and no acute distress Orientation/consciousness: patient oriented x3 HEENT Head: Yes normal to inspection Eyes General: appearance normal, both eyes and all related structures Neck Neck: Yes normal visual inspection Chest Chest palpation & inspection: normal inspection of the chest Resp Effort & Inspection: normal respiratory effort Auscultation: clear to auscultation bilaterally Cardio Jugular venous distension: no JVD Palpation: normal PMI Rate: regular rate Rhythm: regular rhythm Heart sounds: S1 normal heart sound present, S2 normal heart sound present, no click, no gallops, no murmurs and no rubs GI Inspection: Yes normal to inspection Palpation (GI): Soft to palpation Skin General skin exam: no rashes or lesions noted Neuro General: patient oriented x3 Extrem General: Yes normal to inspection Psych Appearance: grossly normal Assessment & Plan Assessment & Plan (1) Borderline high blood pressure: Code(s): R03.0 - Elevated blood-pressure reading, without diagnosis of hypertension Category: Medical Plan Blood pressure today borderline high on arrival. rechecked by me and improved. Patients lab work insignificant during ED visit. She wanted noted to have a UTI and was treated for that. Will order echocardiogram to assess structure of heart. Advised to monitor and log blood pressures and symptoms. SBP was as high as 161 in the emergency room. Reviewed good technique for blood pressure readings. Heart healthy diet, exercise, and weight loss encouraged. Orders: Orders CA echo transthoracic complete Today R03.0 - Elevated blood-pressure reading, without diagnosis of hypertension Coding Level of Care Code New Pt Level 3 (18879) Diagnoses Borderline high blood pressure R03.0
[2024-02-04 15:22] VITALS: BP 128/80
== END 2024-02-04 15:29 | disposition home or self-care (01) ==
PROVIDERS: PCP Physician Assistant; Visit Provider Nurse Practitioner
DX: R03.0 Elevated blood-pressure reading, without diagnosis of hypertension (principal)
CPT/HCPCS: 99203

== ENCOUNTER → 2024-02-04 14:31 | Outpatient (BNVA) | payer BC, SELFPAY | PROVIDERS: PCP Physician Assistant; Visit Provider Nurse Practitioner | DX: R03.0 Elevated blood-pressure reading, without diagnosis of hypertension (principal) ==

== ENCOUNTER → 2024-02-25 08:05 | Outpatient (REF) | payer BC, SELFPAY ==
--- NOTE | 2024-02-25 08:08 | CA_ITS ---
Transthoracic Echocardiogram Patient (Last, First, Middle): Loren Mcpherson, Gender: Female Date of : 1965 Age: 59 Procedure Date: 02/25/2024 Procedure Type: Transthoracic Echocardiogram Location: OP Height: 162.56 cm Weight: 100.25 kg BSA: 2.04 m2 Heart Rate: 60 bpm BP: 135 / 90 mmHg Rn Informatics: LELA Referring MD: Emily Martines [employer] Symptoms: R03.0 - Elevated blood-pressure reading, without diagnosis of hypertension Study Quality: Fair Conclusions: - Normal left ventricular size and systolic function. There is mildly increased left ventricular wall thickness. The visually estimated ejection fraction is between 60-65%. - Normal right ventricular cavity size and systolic function. Findings Left Ventricle Normal left ventricular size and systolic function. There is mildly increased left ventricular wall thickness. The visually estimated ejection fraction is between 60-65%. There is no evidence of regional wall motion abnormalities. Diastolic function is normal for age. Right Ventricle Normal right ventricular cavity size and systolic function. Atria The left atrium is normal in size. The right atrium is normal in size. Aortic Valve Normal aortic valve structure and function. There is no aortic valve stenosis. There is no aortic valve regurgitation. Mitral Valve Normal mitral valve structure and function. There is no mitral valve regurgitation. There is no mitral valve stenosis. Pulmonic Valve The pulmonic valve is normal. There is no pulmonic valve regurgitation. Tricuspid Valve Normal tricuspid valve structure. There is no tricuspid valve regurgitation. Normal right atrial pressure. There is no evidence of pulmonary hypertension. Great Vessels All visible segments of the aorta are normal in size. The visualized portions of the pulmonary artery and branches are normal. Venous The inferior vena cava is normal in size and collapses greater than 50% with inspiration. Pericardium/Pleural There is no evidence of pericardial effusion. Measurements 2D Linear Measurements IVSd: 0.98 0.6-0.9/0.6-1.0 cm LVIDd: 4.29 3.9-5.3/4.2-5.9 cm LVIDd Index: 2.10 2.4-3.2/2.2-3.1 cm/m2 LVIDs: 2.67 2.0-3.6 cm LVPWd: 1.04 0.7-1.1 cm LA Diam: 3.10 2.7-3.8/3.0-4.0 cm LAIDs Index: 1.52 1.5-2.3 cm/m2 LV Mass: 179.67 67-162/88-224 g LV Mass Index: 88.08 43-95/49-115 g/m2 LVOT Diam: 1.90 3.0+(-)1.3 cm 2D Systolic Function EF 4C: 59.10 >55% EF 2C: 67.30 >55% EF BiP: 63.40 >55% Mitral Valve MV Pk E: 0.81 MV PK A: 0.67 MV Decel Time: 248.00 E/A: 1.20 E'Lateral: 10.10 E'Medial: 7.62 E/E' Med: 10.70 E/E' Lat: 8.10 PHT: 73.00 MVA PHT: 3.01 Decel [place]: 3.29 Aortic Valve AoV Pk Alen: 1.42 AoV Mn Alen: 0.96 AoV VTI: 0.32 AoV Pk Grad: 8.00 Aov Mn Grad: 4.00 MARIA FERNANDA Cont.VTI: 2.07 LVOT LVOT Pk Alen: 1.04 LVOT Mn Alen: 0.72 LVOT VTI: 0.24 LVOT Pk Grad: 4.00 LVOT Mn Grad: 3.00 LVOT Diam: 1.90 LVOT Area: 2.84 Diastolic Function MV Pk E: 0.81 MV Pk A: 0.67 E/A: 1.20 E'Medial: 7.62 E/E' Med: 10.70 E' Laterial: 10.10 E/E' Lat: 8.10 Right Ventricle TAPSE (mm): 20.40 TVS' Alen: 11.50 Tricuspid Valve TR Pk Alen: 1.84 TR Pk Grad: 14.00 RA Press: 3.00 RVSP: 17.00 Great Vessels Aorta Sinus of Valsalva: 3.00 2.0-3.5 cm Ao Asc: 3.10 2.1-3.4 cm Pulmonary Valve PV Pk Alen: 1.18 Peak PV Grad: 6.00 Updated in Other Vendor System with Status of Final Dhaval Gonzalez MD electronically signed on 02/28/2024 9:36:16 PM with status of Final
== END ==
LOC: HO.CARD 08:05
PROVIDERS: PCP Physician Assistant; Visit Provider Nurse Practitioner
DX: R03.0 Elevated blood-pressure reading, without diagnosis of hypertension (principal)
CPT/HCPCS: 93306

== ENCOUNTER → 2024-02-25 08:08 | Outpatient (BNV) | payer BC, SELFPAY | PROVIDERS: PCP Physician Assistant; Visit Provider Internal Medicine Cardiovascular Disease | DX: R03.0 Elevated blood-pressure reading, without diagnosis of hypertension (principal) | CPT/HCPCS: 93306 ==

== ENCOUNTER 2024-03-17 15:00 | Outpatient (AMB) | payer BC, SELFPAY ==
[2024-03-17 15:09] VITALS: BP 140/80; PULSE 67; BMI 36.7
--- NOTE | 2024-03-17 15:09 | A.OFFVIS_ITS ---
Vital Signs 03/17/24 15:09 03/17/24 15:51 Height 5 ft 5 in Weight 220 lb 7.396 oz BMI 36.7 BP 140/80 H 136/80 Blood Pressure Location Lt brachial Lt brachial Position Sitting Pulse 67 Pulse Source Pulse Oximeter Intake Visit Reasons: 6-8 wk follow up Allergies ragweed Allergy (Unknown, Uncoded 01/27/24 20:01) Allergic rhinitis HPI Comments Details: 59-year-old female presents today for a follow-up. She had concerns over some high blood pressure readings. She is still getting intermittent high readings at home or before IV vitamin infusion. Mostly her systolic readings 130s-140s. She reports no changes and an occational shortness of breath on exertion. She is hoping for a knee replacement next year. [facility] Medical History (Updated 03/17/24 @ 15:50 by Emily Martines NP) HTN (hypertension) Borderline high blood pressure Seasonal allergies Ear infection Benign neoplasm of left breast Ectopic Arthritis GERD (gastroesophageal reflux disease) Obesity (BMI 30-39.9) Family History Father Prostate cancer Mother No problems noted. Sister Hypertension Colorectal cancer Social History Housing: House Patient Tobacco Use Status: Never used Tobacco e-Cigarette/Vaping Use: Never Used Current occupational status: employed Current occupation: Right Handed Cognitive needs: No Hearing needs: No Vision needs: Yes Review of Systems Const Denies weakness ENT Denies dizziness Card Denies chest pain, Denies chest pain with activity, Denies syncope, Denies rapid heart rate, Denies pedal edema, Denies edema, Denies leg edema, Denies lightheadedness, Denies palpitations, Denies dyspnea, Denies dyspnea on exertion and Denies orthopnea Resp Denies cough, Denies dyspnea and Denies dyspnea on exertion GI Denies hematochezia and Denies change in stool character Musc Denies abnormal gait, Denies muscle cramps, Denies muscle weakness, Denies numbness, Denies radiating pain into limb and Denies tingling Neuro Denies abnormal gait, Denies dizziness, Denies syncope, Denies numbness, Denies tingling and Denies weakness Endo Denies palpitations Physical Exam Vital Signs: Last Vital Signs Pulse 67 03/17/24 15:09 BP 136/80 03/17/24 15:51 BMI result Body Mass Index 36.7 Const General: healthy appearing and no acute distress Orientation/consciousness: patient oriented x3 HEENT Head: Yes normal to inspection Eyes General: appearance normal, both eyes and all related structures Neck Neck: Yes normal visual inspection Chest Chest palpation & inspection: normal inspection of the chest Resp Effort & Inspection: normal respiratory effort Auscultation: clear to auscultation bilaterally Cardio Jugular venous distension: no JVD Palpation: normal PMI Rate: regular rate Rhythm: regular rhythm Heart sounds: S1 normal heart sound present, S2 normal heart sound present, no click, no gallops, no murmurs and no rubs GI Inspection: Yes normal to inspection Palpation (GI): Soft to palpation Skin General skin exam: no rashes or lesions noted Neuro General: patient oriented x3 Extrem General: Yes normal to inspection Psych Appearance: grossly normal Results Reviewed Results Reviewed: Echo Conclusions: - Normal left ventricular size and systolic function. There is mildly increased left ventricular wall thickness. The visually estimated ejection fraction is between 60-65%. - Normal right ventricular cavity size and systolic function. Assessment & Plan Assessment & Plan (1) HTN (hypertension): Code(s): I10 - Essential (primary) hypertension Category: Medical Plan Blood pressure high on intial exam. Rechecked by me and improved some. Will order stress test with nuclear imaging. If unable to walk on treadmill due to knees will switch to pharmacological day of. Monitor blood pressures at home for the next week and report readings. Orders: Orders CA stress test 03/17/24 I10 - Essential (primary) hypertension NM cardiolite stress test 03/17/24 I10 - Essential (primary) hypertension Coding Level of Care Code Est Pt Level 3 (28161) Diagnoses HTN (hypertension) I10
[2024-03-17 15:51] VITALS: BP 136/80
== END 2024-03-17 15:57 | disposition home or self-care (01) ==
PROVIDERS: PCP Physician Assistant; Visit Provider Nurse Practitioner
DX: I10 Essential (primary) hypertension (principal)
CPT/HCPCS: 99213

== ENCOUNTER → 2024-03-17 15:00 | Outpatient (BNVA) | payer BC, SELFPAY | PROVIDERS: PCP Physician Assistant; Visit Provider Nurse Practitioner | DX: I10 Essential (primary) hypertension (principal) ==

== ENCOUNTER 2024-04-05 08:34 | Outpatient (AMB) | payer BC, SELFPAY ==
--- NOTE | 2024-04-05 08:38 | MHC.PC.OV ---
Vital Signs 04/05/24 08:40 Height 5 ft 5 in Weight 220 lb 8 oz BMI 36.7 BP 128/64 Blood Pressure Location Lt brachial Position Sitting Pulse 73 Pulse Source Pulse Oximeter Pulse Oximetry (%) 98 Oxygen Delivery Method Room Air Intake Visit Reasons: PE Intake Note: Patient is here today for a physical. Older Adult Social Work Specialist Required: No Staging Technician: Not Required per policy Accompanied by: Self / Same As Patient Allergies ragweed Allergy (Unknown, Uncoded 04/05/24 08:51) Allergic rhinitis Medication List - Last Reconciled 04/05/24 by Jon Maldonado PA-C lorazepam 0.5 mg PO DAILY 2 days meloxicam 15 mg PO DAILY 30 days mupirocin 2% 1 appl topical BID 15 days Tobacco use date assessed: 04/05/24 Dental Screening Dental Screen Date: 04/05/24 Did you have a dental visit in the last 12 months?: Yes Did you have a dental problem in the last 6 months where you did not have access to dental care?: No Was dental information given to patient?: Patient has dentist HPI PE HPI Details Patient is a 59-year-old female here today for routine annual physical. Patient has a past medical history significant for bilateral knee osteoarthritis, major depressive disorder, obesity and elevated blood pressure readings . Elevated blood pressure readings: Today in office blood pressure normal. Has followed [facility] and has underwent EKG and echocardiogram which were normal. She will be due for cardiac stress test. She is concerned about her spikes in blood pressure. .. Obesity: Patient has had a lot of trouble losing weight. She has not as physically active as she would like to be due to her bilateral knee osteoarthritis. She somewhat interested GLP 1 to help her reduce her weight. Mammogram: Up-to-date with mammogram, done at [facility]- Had abnormality on mammo in right breast. Colon cancer screening: Colonoscopy done in 2022, repeat 5 years due to family history colon cancer. 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 GERD (gastroesophageal reflux disease) Obesity (BMI 30-39.9) Surgical History History of breast biopsy Family History (Updated 04/05/24 @ 09:00 by oJn Maldonado PA-C) Father Prostate cancer CAD (coronary artery disease) Mother CAD (coronary artery disease) Sister Hypertension Colorectal cancer Social History Housing: House Patient Tobacco Use Status: Never used Tobacco e-Cigarette/Vaping Use: Never Used Second Hand Smoke Exposure: No service: No Current occupational status: employed Current occupation: Right Handed Cognitive needs: No Hearing needs: No Vision needs: Yes Questionnaire PHQ-9 Over the last 2 weeks, how often have you been bothered by any of the following problems? 1. Little interest or pleasure in doing things: not at all 2. Feeling down, depressed, or hopeless: not at all 3. Trouble falling or staying asleep, or sleeping too much: not at all 4. Feeling tired or having little energy: not at all 5. Poor appetite or overeating: not at all 6. Feeling bad about yourself - or that you are a failure or have let yourself or your family down: not at all 7. Trouble concentrating on things, such as reading the newspaper or watching television: not at all 8. Moving or speaking so slowly that other people could have noticed. Or the opposite - being so fidgety or restless that you have been moving around a lot more than usual: not at all 9. Thoughts that you would be better off or of hurting yourself in some way: not at all Total score: 0 Depression Screening Interpretation: Negative Depression Screening Done: Yes 30178 - PHQ-9 Billing: Yes Source: Developed by Drs. Travis Guadalupe, Leia Smalls, Syed Preston and colleagues, with an educational trina from [employer]. Thrive Questionnaire Date Thrive assessed: 04/05/24 I am a: Patient What is your living situation today?: I have a steady place to live Within the past 12 months, did the food you bought not last and you didn't have the money to get more?: Never true Within the past 12 months, did you worry whether your food would run out before you got money to buy more?: Never true Do you have trouble paying for medicines?: No Do you have trouble getting transportation to medical appointments?: No Do you have trouble paying your heating and electricity bill?: No Do you have trouble taking care of your child, family member or friend?: No Do you have trouble with day-to-day activities such as bathing, preparing meals, shopping, managing finances, etc.?: No Are you currently unemployed and looking for a job?: No Are you interested in more education?: No Currently or been in a relationship where the following occur: No concerns reported THRIVE Score: 0 AUDIT C Alcohol Use Questionnaire (AUDIT-C) 1. How often do you have a drink containing alcohol?: Never Total Score: 0 CIARAN-7 AMB Questionnaire CIARAN-7 Date CIARAN - 7 assessed: 04/05/24 Feeling nervous, anxious, or on edge: 0 = Not at all Not being able to stop or control worryin = Not at all Worrying too much about different things: 0 = Not at all Trouble relaxin = Not at all Being so restless that it is hard to sit still: 0 = Not at all Becoming easily annoyed or irritable: 0 = Not at all Feeling afraid as if something awful might happen: 0 = Not at all Total CIARAN-7 score (0-4 normal; 5-9 mild; 10-14 moderate; 15-21 severe): 0 Source: Developed by Drs. Travis Guadalupe, Leia Smalls, Syed Preston and colleagues, with an educational trina from [employer]. CIARAN-7 Assessment Billing CIARAN-7 Assessment Tool: CIARAN-7 Assessment 60834 Review of Systems Const Denies body aches, Denies chills, Denies excessive sweating, Denies fatigue, Denies fever(s) and Denies headache(s) Eyes Denies blurry vision ENT Denies dysphagia, Denies vertigo, Denies dizziness, Denies headache(s), Denies hearing loss and Denies tinnitus Card Denies chest pain, Denies chest pain with activity, Denies syncope, Denies irregular heart rhythm and Denies dyspnea Resp Denies chest congestion, Denies cough, Denies hemoptysis, Denies dyspnea and Denies wheezing GI Denies abdominal pain, Denies melena, Denies hematochezia, Denies coffee ground emesis, Denies dysphagia, Denies diarrhea, Denies nausea and Denies vomiting Denies urinary frequency, Denies dysuria, Denies urinary hesitancy and Denies urinary urgency Musc Denies arthralgias, Denies limited range of motion, Denies muscle cramps and Denies muscle weakness Skin/Breast Denies rash and Denies skin ulcer Neuro Denies Abnormal speech present, Denies confusion, Denies vertigo, Denies dizziness, Denies syncope, Denies headache(s), Denies memory loss and Denies seizure-like activity Psych Denies anxiety, Denies confusion, Denies depression, Denies memory loss, Denies panic attacks and Denies paranoia Endo Denies excessive sweating, Denies fatigue, Denies flushing, Denies polydipsia and Denies polyuria Aller/Immun Denies wheezing Physical exam (Primary Care) Vital Signs: Last Vital Signs Pulse 73 04/05/24 08:40 BP 128/64 04/05/24 08:40 Pulse Ox 98 04/05/24 08:40 Oxygen Delivery Method Room Air 04/05/24 08:40 BMI result Body Mass Index 36.7 Tobacco/Smoking Status: Tobacco use Status Tobacco use date assessed 04/05/24 04/05/24 08:47 Patient Tobacco Use Status Never used Tobacco 04/05/24 08:47 e-Cigarette/Vaping Use Never Used 04/05/24 08:47 PHQ-9: PHQ-9 Score PHQ-9: Total score 0 04/05/24 08:53 Depression Screening Interpretation: Negative Thrive Assessment: Date of Thrive Assessment Date Thrive assessed 04/05/24 04/05/24 08:47 Currently or been in a relationship where the following occur: No concerns reported Const General: cooperative, comfortable, no acute distress, alert and awake; No confusion Orientation/consciousness: oriented to person, oriented to place, patient oriented x3 and No confusion HENMT Head: Yes normocephalic Ears: external ears normal and TM's normal bilaterally Face and sinus: No sinus tenderness Mouth: Normal oral and palatal mucosa present and tongue normal Teeth and gingiva: dentition normal and gingiva normal Throat: Yes posterior oropharynx normal, Yes tonsils normal and Yes uvula midline Eyes Conjunctivae: conjunctivae normal Sclerae: sclerae normal Pupils: Equal, round and reactive pupils present EOM: EOMs intact bilaterally Direct Ophthalmoscopy: No no photophobia Neck Neck: Yes no lymphadenopathy, No tender and Yes no JVD Thyroid: Thyroid normal Carotids: no bruits Chest Chest palpation & inspection: no tenderness Resp Effort & Inspection: normal respiratory effort, no audible wheezes, not labored and no stridor Auscultation: no crackles, no rales, no rhonchi and no wheezes Cardio Jugular venous distension: no JVD Rate: regular rate, not bradycardic and not tachycardic Rhythm: regular rhythm Bruits: no carotid bruits Peripheral pulses: Peripheral pulses 2+ throughout GI Inspection: Yes normal to inspection, No abdominal wall ecchymosis and No visible herniation Palpation (GI): Soft to palpation, nontender, no guarding, not rigid and No hepatosplenomegaly present Auscultation: normoactive bowel sounds General: Yes no CVA tenderness Back/Spine/Pelvis Back: no CVA tenderness and No back tenderness Cervical Spine: cervical ROM normal Thoracic/Lumbar Spine: thoracic and lumbar spine normal to inspection, straight leg raise negative bilaterally, No thoraco-lumbar ROM limited and No lumbar spinal tenderness Skin Lesions: no lesions Rashes: no rashes Wounds: no wounds Neuro General: oriented to person, oriented to place, patient oriented x3, CN's II-XI intact bilaterally and No confusion Cranial nerves: Yes Equal, round and reactive pupils present and Yes Normal accommodation reflex present Cognition (Neuro): normal cognition Speech: No Abnormal speech present Gait exam (Neuro): Normal gait present Motor exam (neuro): 5/5 motor strength present throughout Extrem Right upper extremity: full ROM; no cyanosis Left upper extremity: full ROM; no cyanosis Right lower extremity: no edema Left lower extremity: no edema Psych Appearance: grossly normal Mental Status: mental status grossly normal Affect: normal affect Attitude: cooperative Thought process: Normal thought process present Assessment and Plan Assessment & Plan (1) Annual physical exam: Code(s): Z00.00 - Encounter for general adult medical examination without abnormal findings (2) Primary osteoarthritis of knees, bilateral: Code(s): M17.0 - Bilateral primary osteoarthritis of knee Plan: As per HPI patient does suffer from bilateral knee osteoarthritis. She does attribute monitor her knee pain due to her weight. She will work extensively on weight reduction. She does followed orthopedic and gets injections in her knees switched to per orally gives her relief. She will continue with the use of meloxicam 2-3 times per week. Will supply patient with Tylenol arthritis to use in conjunction with NSAID (3) Screening for diabetes mellitus (DM): Code(s): Z13.1 - Encounter for screening for diabetes mellitus (4) Obese: Code(s): E66.9 - Obesity, unspecified Qualifiers: Body mass index: BMI 38.0-38.9 Obesity classification: adult class 2 (BMI 35 - 39.9) Obesity type: due to excess calories Serious obesity comorbidity presence: with serious comorbidity Qualified Code(s): E66.01 - Morbid (severe) obesity due to excess calories; Z68.38 - Body mass index [BMI] 38.0-38.9, adult Plan: Patient does understand her BMI is over 30 will work on being more physically active and adapting to better eating habits to reduce her weight. She is considering a GLP 1 to help her lose weight. For now she will try to be more physically active and work on healthy eating habits to reduce her weight. Orders: Orders Lipid Panel 04/05/24 R03.0 - Elevated blood-pressure reading, without diagnosis of hypertension Microalbumin, Random (w Creat) 04/05/24 I10 - Essential (primary) hypertension Comprehensive [place]. Panel Fast 04/05/24 I10 - Essential (primary) hypertension Complete Blood Count no Diff 04/05/24 I10 - Essential (primary) hypertension Medications: New acetaminophen ER (Tylenol 8 Hour) 650 mg PO Q12H 60 tabs 2RF 30 days M17.0 - Bilateral primary osteoarthritis of knee Refilled meloxicam 15 mg PO DAILY 30 tabs 1RF 30 days M17.0 - Bilateral primary osteoarthritis of knee Coding Level of Care Code Est Pt Prev Care 40-64y(34835) Diagnoses Annual physical exam Z00.00 Primary osteoarthritis of knees, bilateral M17.0 Screening for diabetes mellitus (DM) Z13.1 Class 2 severe obesity due to excess calories with serious comorbidity and body mass index (BMI) of 38.0 to 38.9 in adult E66.01; Z68.38 Body mass index: BMI 38.0-38.9 Obesity classification: adult class 2 (BMI 35 - 39.9) Obesity type: due to excess calories Serious obesity comorbidity presence: with serious comorbidity Additional Codes CIARAN-7 Assessment Billing - CIARAN-7 Assessment Tool: CIARAN-7 Assessment [id number] ([id number])
[2024-04-05 08:40] VITALS: BP 128/64; PULSE 73; O2SAT 98; BMI 36.7
== END 2024-04-05 09:25 | disposition home or self-care (01) ==
PROVIDERS: PCP Physician Assistant; Visit Provider Physician Assistant
DX: Z00.00 Encounter for general adult medical examination without abnormal findings (principal); E66.01 Morbid (severe) obesity due to excess calories; M17.0 Bilateral primary osteoarthritis of knee; Z68.38 Body mass index [BMI] 38.0-38.9, adult; Z13.1 Encounter for screening for diabetes mellitus
CPT/HCPCS: 99396

== ENCOUNTER → 2024-04-18 08:53 | Outpatient (BNVA) | payer BC, SELFPAY | PROVIDERS: PCP Physician Assistant; Visit Provider Nurse Practitioner | DX: Z01.89 Encounter for other specified special examinations (principal) ==

== ENCOUNTER → 2024-05-22 08:19 | Outpatient (REF) | payer BC, SELFPAY ==
--- NOTE | ~2024-05-22 | NM_ITS ---
EXERCISE MYOCARDIAL PERFUSION STUDY INDICATION: Shortness of breath TECHNIQUE: The patient was brought in for an exercise perfusion study on 05/22/2024. Patient performed exercise as per Livan protocol and was injected 35 mCi of sestamibi once target heart rate was achieved. Images were obtained using the SPECT gamma camera interlaced with the gating device. Images were obtained in supine position. Resting perfusion study was performed on 05/25/2024. Patient was administered 35 mCi of sestamibi intravenously at rest. Images were then obtained in supine position. Total DLP 110mGy-cm. Images were processed with the software and compared side to side in short axis, horizontal long axis and vertical long axis views. FINDINGS: Raw images were reviewed The stress perfusion study showed diminished tracer uptake in the distal part of anterior wall. There is improvement with CT attenuation correction and hence could be having components of soft tissue attenuation artifact. The gated study shows normal LV systolic function with calculated LVEF of 69%. LV cavity is normal in size. The gated study shows normal wall thickening and contraction of segments. Resting study shows no significant perfusion abnormality. Gating at rest reveals normal wall motion with ejection fraction at 67%. The findings are consistent with reversible distal anterior perfusion defect which could be from soft tissue attenuation artifact. NM/NM cardiolite stress test IMPRESSION: 1. Myocardial perfusion imaging study shows probably normal myocardial perfusion. Reversible distal anterior perfusion defect could be from soft tissue attenuation artifact. 2. Gated LVEF is 69% during stress and 67% during rest. 3. Transient ischemic dilatation not present. EKG component of the test reported separately. Electronically signed by: Kane Hollingsworth MD 05/25/2024 03:57 PM EDT
--- NOTE | 2024-05-22 08:26 | CA_ITS ---
Acquisition Time: 2024-05-22 08:39:07 Total Exercise Time: 00:05:00 Test Indications: SOB, HTN Medications: SEE H Protocol: KAMLESH Max HR: 155 BPM 96% of Pred: 160 BPM Max BP: 200/098 mmHG Max Work Load: 7.0 METS Exercise stress test 5 min of Kamlesh protocol achieving 95% MPHR, with moderate SOB, no chest discomfort, without arrhythmias, with HTN response to exercise, without EKG changes. Breathing returned to baseline. Nuclear images pending. Test reviewed with Dr. Gonzalez. Referred By: Emily Martines Overread By: Emily Martines
== END ==
LOC: HO.CARD 08:19
PROVIDERS: PCP Physician Assistant; Visit Provider Nurse Practitioner
DX: I10 Essential (primary) hypertension (principal)
CPT/HCPCS: 78452; 93017; A9500

== ENCOUNTER → 2024-05-22 08:26 | Outpatient (BNV) | payer BC, SELFPAY | PROVIDERS: PCP Physician Assistant; Visit Provider Nurse Practitioner | DX: R06.02 Shortness of breath (principal) | CPT/HCPCS: 78452; 93016; 93018 ==

== ENCOUNTER 2024-05-26 15:15 | Outpatient (AMB) | payer BC, SELFPAY ==
[2024-05-26 15:17] VITALS: BP 144/80; PULSE 79; BMI 36.3
--- NOTE | 2024-05-26 15:17 | MHC.OFFVIS ---
Vital Signs 05/26/24 15:17 05/26/24 15:41 Height 5 ft 5 in Weight 218 lb 4.122 oz BMI 36.3 BP 144/80 H 128/82 Blood Pressure Location Lt brachial Lt brachial Position Sitting Sitting Pulse 79 Pulse Source Pulse Oximeter Intake Visit Reasons: 2m follow up Allergies ragweed Allergy (Unknown, Uncoded 04/05/24 08:51) Allergic rhinitis HPI Comments Details: 59-year-old female presents today for a follow-up. She had concerns over some high blood pressure readings. Her home machine she has been getting some very high readings. She reports some shortness of breath on exertion neck occasional sensation in her chest that she can not quite describe. She had an stress test which her blood pressure became significantly high. She has just started the hydrochlorothiazide 2 days ago. Reports no side effects at this time. She is hoping for a knee replacement next year. [facility] Medical History (Updated 05/29/24 @ 13:06 by Emily Martines NP) Short of breath on exertion Chest pain HTN (hypertension) Borderline high blood pressure Seasonal allergies Ear infection Benign neoplasm of left breast Ectopic Arthritis GERD (gastroesophageal reflux disease) Obesity (BMI 30-39.9) Surgical History History of breast biopsy Family History (Updated 04/05/24 @ 09:00 by Jon Maldonado PA-C) Father Prostate cancer CAD (coronary artery disease) Mother CAD (coronary artery disease) Sister Hypertension Colorectal cancer Social History Housing: House Patient Tobacco Use Status: Never used Tobacco e-Cigarette/Vaping Use: Never Used Second Hand Smoke Exposure: No service: No Current occupational status: employed Current occupation: Right Handed Cognitive needs: No Hearing needs: No Vision needs: Yes Review of Systems Const Denies weakness ENT Denies dizziness Card Denies chest pain, Denies chest pain with activity, Denies syncope, Denies rapid heart rate, Denies pedal edema, Denies edema, Denies leg edema, Denies lightheadedness, Denies palpitations, Denies dyspnea, Denies dyspnea on exertion and Denies orthopnea Resp Denies cough, Denies dyspnea and Denies dyspnea on exertion GI Denies hematochezia and Denies change in stool character Musc Denies abnormal gait, Denies muscle cramps, Denies muscle weakness, Denies numbness, Denies radiating pain into limb and Denies tingling Neuro Denies abnormal gait, Denies dizziness, Denies syncope, Denies numbness, Denies tingling and Denies weakness Endo Denies palpitations Physical Exam Vital Signs: Last Vital Signs Pulse 79 05/26/24 15:17 BP 128/82 05/26/24 15:41 BMI result Body Mass Index 36.3 Results Reviewed Results Reviewed: Protocol: KAMLESH Max HR: 155 BPM 96% of Pred: 160 BPM Max BP: 200/098 mmHG Max Work Load: 7.0 METS Exercise stress test 5 min of Kamlesh protocol achieving 95% MPHR, with moderate SOB, no chest discomfort, without arrhythmias, with HTN response to exercise, without EKG changes. Breathing returned to baseline. Nuclear images pending. Test reviewed with Dr. Gonzalez. NM/NM cardiolite stress test IMPRESSION: 1. Myocardial perfusion imaging study shows probably normal myocardial perfusion. Reversible distal anterior perfusion defect could be from soft tissue attenuation artifact. 2. Gated LVEF is 69% during stress and 67% during rest. 3. Transient ischemic dilatation not present. Assessment & Plan Assessment & Plan (1) HTN (hypertension): Code(s): I10 - Essential (primary) hypertension Category: Medical (2) Chest pain: Code(s): R07.9 - Chest pain, unspecified Category: Medical (3) Short of breath on exertion: Code(s): R06.02 - Shortness of breath Category: Medical Plan We will order a coronary CTA to further assess coronary status. Patient is going to return blood pressure monitor to the [employer] she had got it from due to inaccuracy with vital check in office. It was checked multiple times and there was a significant difference. She reports she feels well with the hydrochlorothiazide 25 mg. She will continue with that. She is also due for a follow up with her primary care doctor in July which they will check a manual blood pressure also and ensure no issues or concerns. Or if adjustments to her medication need to be made. We will follow up after the CTA. Advised heart healthy diet and weight loss as able. Blood pressure much improved on hydrochlorothiazide. She will also ask her primary care provider for something for anxiety for the coronary CTA. Orders: Orders Basic Metabolic Panel 05/26/24 I10 - Essential (primary) hypertension CT Cardiac Coronary Angio 05/26/24 I10 - Essential (primary) hypertension, R06.02 - Shortness of breath, R07.9 - Chest pain, unspecified Medications: Discontinued lorazepam To take half an hour before procedure Discontinued Reason: Doctor's Order 0.5 mg PO DAILY 2 days 2 tabs 0RF anxiety Coding Level of Care Code Est Pt Level 4 (27530) Diagnoses HTN (hypertension) I10 Chest pain R07.9 Short of breath on exertion R06.02
[2024-05-26 15:41] VITALS: BP 128/82
== END 2024-05-26 16:04 | disposition home or self-care (01) ==
PROVIDERS: PCP Physician Assistant; Visit Provider Nurse Practitioner
DX: I10 Essential (primary) hypertension (principal); R07.9 Chest pain, unspecified; R06.02 Shortness of breath
CPT/HCPCS: 99214

== ENCOUNTER → 2024-05-26 15:15 | Outpatient (BNVA) | payer BC, SELFPAY | PROVIDERS: PCP Physician Assistant; Visit Provider Nurse Practitioner | DX: R07.9 Chest pain, unspecified (principal); I10 Essential (primary) hypertension; R06.02 Shortness of breath; Z79.899 Other long term (current) drug therapy ==

== ENCOUNTER 2024-07-03 13:13 | Outpatient (REF) | payer BC, SELFPAY ==
[2024-07-03 14:33] LABS: Anion Gap 12 (12-20); Blood Urea Nitrogen 10 mg/dL (9-16); Calcium 9.9 mg/dL (8.4-10.2); Carbon Dioxide 29 mmol/L (22-29); Chloride 104 mmol/L (96-108); Estimated Glomerular Filt Rate > 60; Glucose Random 95 mg/dL (60-115); Potassium 3.8 mmol/L (3.3-5.1); Sodium 141 mmol/L (135-145)
== END 2024-07-03 13:14 | disposition home or self-care (01) ==
LOC: HO.LAB 13:13
PROVIDERS: PCP Physician Assistant; Visit Provider Nurse Practitioner
DX: I10 Essential (primary) hypertension (principal)
CPT/HCPCS: 36415; 80048

== ENCOUNTER 2024-07-05 13:58 | Outpatient (REF) | payer BC, SELFPAY ==
[2024-07-05 14:45] LABS: Hematocrit 42.5 % (37.0-47.0); Hemoglobin 13.9 g/dl (12.0-16.0); Mean Corpuscular HGB Conc 32.7 g/dl (31.0-35.0); Mean Corpuscular Hemoglobin 28.1 pg (27.0-33.0); Mean Corpuscular Volume 85.9 fL (80.0-98.0); Mean Platelet Volume 10.7 fL (9.4-12.3); Platelet Count 291 X10*3/uL (160-400); Red Blood Count 4.95 X10*6/uL (4.20-5.50); White Blood Count 6.6 X10*3/uL (4.8-10.8)
[2024-07-05 15:18] LABS: Creatinine Urine 84.32 mg/dL; Microalbum/Creatinine Ratio Ur 5.9 ug/mg cr (<30)
[2024-07-05 15:22] LABS: Alanine Aminotransferase 14 U/L (0-31); Albumin Level 4.1 g/dL (3.5-5.0); Alkaline Phosphatase 97 U/L (39-117); Anion Gap 14 (12-20); Aspartate Amino Transferase 15 U/L (5-31); Bilirubin Total 0.6 mg/dL (0.0-1.0); Blood Urea Nitrogen 11 mg/dL (9-16); Calcium 9.5 mg/dL (8.4-10.2); Carbon Dioxide 27 mmol/L (22-29); Chloride 103 mmol/L (96-108); Cholesterol 194 mg/dL (<200); Estimated Glomerular Filt Rate > 60; Glucose Fasting 85 mg/dL (60-99); HDL Cholesterol 73 mg/dL (>40); LDL Cholesterol Calculated 101 mg/dL (<100); Potassium 4.2 mmol/L (3.3-5.1); Sodium 140 mmol/L (135-145); Total Protein 7.1 g/dL (6.5-8.0); Triglycerides 104 mg/dL (<150)
== END 2024-07-05 13:59 | disposition home or self-care (01) ==
LOC: HO.LAB 13:58
PROVIDERS: Visit Provider Physician Assistant
DX: R03.0 Elevated blood-pressure reading, without diagnosis of hypertension (principal); I10 Essential (primary) hypertension
CPT/HCPCS: 36415; 80053; 80061; 82043; 82570; 85027

== ENCOUNTER 2024-07-06 09:39 | Outpatient (AMB) | payer BC, SELFPAY ==
[2024-07-06 09:46] VITALS: BP 118/82; PULSE 108; O2SAT 98; BMI 36.0
--- NOTE | 2024-07-06 09:46 | MHC.PC.OV ---
Vital Signs 07/06/24 09:46 Height 5 ft 5 in Weight 216 lb 8 oz BMI 36.0 BP 118/82 Blood Pressure Location Lt brachial Position Sitting Pulse 108 H Pulse Source Pulse Oximeter Pulse Oximetry (%) 98 Oxygen Delivery Method Room Air Intake Visit Reasons: 3 Month F/U Intake Note: Pt is requesting a mammogram order at [facility]. 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 Accompanied by: Self / Same As Patient Allergies ragweed Allergy (Unknown, Uncoded 07/06/24 09:55) Allergic rhinitis Medication List - Last Reconciled 07/06/24 by Jon Maldonado PA-C acetaminophen ER (Tylenol 8 Hour) 650 mg PO Q12H 30 days blood pressure monitor (Blood Pressure Kit) As directed hydrochlorothiazide 25 mg PO DAILY lorazepam 1 mg PO DAILY 2 days meloxicam 15 mg PO DAILY 30 days mupirocin 2% 1 appl topical BID 15 days Tobacco use date assessed: 04/05/24 Dental Screening Dental Screen Date: 04/05/24 HPI 3 Month F/U HPI Details Patient is a 59-year-old female here today for a follow-up visit. . Patient has a past medical history significant for bilateral knee osteoarthritis, major depressive disorder, obesity and elevated blood pressure readings . Elevated blood pressure readings: Today in office blood pressure normal. Has followed [facility] and has underwent EKG and echocardiogram which were normal. She has undergone a cardiac stress test which was normal as well. She continues on hydrochlorothiazide and seems blood pressure stable. She will going for a CT coronary angio - will supply patient with diazepam to take half an hour before procedure due to her severe claustrophobia .. Obesity: Patient has had a lot of trouble losing weight. She has not as physically active as she would like to be due to her bilateral knee osteoarthritis. She somewhat interested GLP 1 to help her reduce her weight. .. Bilateral knee osteoarthritis: Followed by orthopedic surgeon is strongly considering bilateral knee replacements COUNTS INCLUDE 234 BEDS AT THE [facility] Medical History (Updated 07/06/24 @ 10:19 by Jon Maldonado PA-C) Short of breath on exertion Chest pain HTN (hypertension) Borderline high blood pressure Seasonal allergies Ear infection Benign neoplasm of left breast Ectopic Arthritis GERD (gastroesophageal reflux disease) Obesity (BMI 30-39.9) Surgical History History of breast biopsy Family History Father Prostate cancer CAD (coronary artery disease) Mother CAD (coronary artery disease) Sister Hypertension Colorectal cancer Social History Housing: House Patient Tobacco Use Status: Never used Tobacco e-Cigarette/Vaping Use: Never Used Second Hand Smoke Exposure: No service: No Current occupational status: employed Current occupation: Right Handed Cognitive needs: No Hearing needs: No Vision needs: Yes Questionnaire Thrive Questionnaire Date Thrive assessed: 04/05/24 Are you currently unemployed and looking for a job?: No AUDIT C Alcohol Use Questionnaire (AUDIT-C) 3. How often do you have six or more drinks on one occasion?: Never Total Score: 0 CIARAN-7 AMB Questionnaire CIARAN-7 Date CIARAN - 7 assessed: 04/05/24 Source: Developed by Drs. Travis Guadalupe, Leia Smalls, Syed Preston and colleagues, with an educational trina from [employer]. Review of Systems Const Denies headache(s) Eyes Denies loss of vision ENT Denies vertigo, Denies dizziness, Denies headache(s) and Denies sore throat Card Denies chest pain, Denies leg edema and Denies lightheadedness Resp Denies cough, Denies hemoptysis and Denies wheezing GI Denies abdominal pain, Denies melena, Denies constipation, Denies diarrhea and Denies vomiting Denies urinary frequency, Denies dysuria and Denies urinary urgency Musc Denies arthralgias, Denies joint swelling, Denies numbness and Denies tingling Neuro Denies Abnormal speech present, Denies behavioral changes, Denies vertigo, Denies dizziness, Denies headache(s), Denies loss of vision, Denies memory loss, Denies numbness and Denies tingling Psych Denies anxiety, Denies behavioral changes, Denies depression, Denies memory loss and Denies panic attacks Eric/Lymph Denies easy bleeding and Denies easy bruising Aller/Immun Denies wheezing Physical exam (Primary Care) Vital Signs: Last Vital Signs Pulse 108 H 07/06/24 09:46 BP 118/82 07/06/24 09:46 Pulse Ox 98 07/06/24 09:46 Oxygen Delivery Method Room Air 07/06/24 09:46 BMI result Body Mass Index 36.0 Tobacco/Smoking Status: Tobacco use Status Tobacco use date assessed 04/05/24 07/06/24 09:48 Patient Tobacco Use Status Never used Tobacco 07/06/24 09:48 e-Cigarette/Vaping Use Never Used 07/06/24 09:48 Thrive Assessment: Date of Thrive Assessment Date Thrive assessed 04/05/24 07/06/24 09:48 Const General: healthy appearing, no acute distress, alert and awake Nutritional Appearance: well nourished Orientation/consciousness: oriented to person, oriented to place and oriented to time HENMT Ears: TM's normal bilaterally General nose exam: Normal nasal mucous membranes and turbinates present Eyes Conjunctivae: conjunctivae normal Sclerae: sclerae normal Pupils: Equal, round and reactive pupils present Neck Neck: Yes no lymphadenopathy and Yes no JVD Thyroid: Thyroid normal Carotids: no bruits Resp Effort & Inspection: normal respiratory effort and not tachypneic Auscultation: no crackles, no rales, no rhonchi and no wheezes Cardio Rate: regular rate Rhythm: regular rhythm Heart sounds: no murmurs and normal S1 and S2 GI Palpation (GI): Soft to palpation, nontender, no hepatomegaly and no splenomegaly Auscultation: normal bowel sounds Skin General skin exam: no rashes or lesions noted and dry skin Neuro General: oriented to person, oriented to place and oriented to time Cranial nerves: Yes Equal, round and reactive pupils present Speech: No Abnormal speech present Gait exam (Neuro): Normal gait present Motor exam (neuro): no tremor noted Extrem Right upper extremity: full ROM Left upper extremity: full ROM Right lower extremity: full ROM; no edema Left lower extremity: full ROM; no edema Psych Mental Status: mental status grossly normal Speech and movement: Normal speech and movement present Affect: normal affect Attitude: cooperative Thought process: Normal thought process present Coding Level of Care Code Est Pt Level 4 (86430) Diagnoses Primary hypertension I10 Hypertension type: primary hypertension Anxiety F41.9 Encounter for screening mammogram for malignant neoplasm of breast Z12.31 Breast cancer screening modality: mammogram Borderline high cholesterol E78.9 Assessment & Plan Assessment & Plan (1) HTN (hypertension): Code(s): I10 - Essential (primary) hypertension Category: Medical Qualifiers: Hypertension type: primary hypertension Qualified Code(s): I10 - Essential (primary) hypertension Plan: Patient's blood pressure acceptable today in office. She will continue on hydrochlorothiazide 25 mg. She has undergone cardiac testing and has an upcoming CT angiogram of the heart to be done at [facility]. Advised to continue monitoring blood pressure with goal blood pressure to remain below 140/90 (2) Anxiety: Code(s): F41.9 - Anxiety disorder, unspecified Category: Medical Plan: Patient does have a CT angiogram of the coronary arteries to be done at [facility]. She is severely claustrophobic and would like medication before the procedure to help her with her anxiety. (3) Breast cancer screening: Code(s): Z12.39 - Encounter for other screening for malignant neoplasm of breast Category: Medical Qualifiers: Breast cancer screening modality: mammogram Qualified Code(s): Z12.31 - Encounter for screening mammogram for malignant neoplasm of breast Plan: Needs screening mammogram done at [facility] (4) Borderline high cholesterol: Code(s): E78.9 - Disorder of lipoprotein metabolism, unspecified Category: Medical Plan: Patient has a history of borderline high total cholesterol. Most recent lipid panel showing improved total cholesterol will continue on lifestyle and dietary modifications with goal total cholesterol to be below 200. Orders: Orders Complete Blood Count no Diff 6 Months I10 - Essential (primary) hypertension MM screening mammo BI Today Z12.31 - Encounter for screening mammogram for malignant neoplasm of breast Comprehensive Parkin. Panel Fast 6 Months I10 - Essential (primary) hypertension Microalbumin, Random (w Creat) 6 Months I10 - Essential (primary) hypertension Medications: New diazepam 10 mg PO ONCE 2 days 2 tabs 0RF F41.9 - Anxiety disorder, unspecified Discontinued meloxicam Discontinued Reason: Doctor's Order 15 mg PO DAILY 30 days 30 tabs 1RF M17.0 - Bilateral primary osteoarthritis of knee lorazepam To take half an hour before procedure Discontinued Reason: Doctor's Order 1 mg PO DAILY 2 days 2 tabs 0RF anxiety Patient Instructions: Goal: Blood pressure to remain below 140/90 Barriers: Adherence to physical activity and healthy eating habits
== END 2024-07-06 10:31 | disposition home or self-care (01) ==
PROVIDERS: PCP Physician Assistant; Visit Provider Physician Assistant
DX: I10 Essential (primary) hypertension (principal); F41.9 Anxiety disorder, unspecified; Z12.31 Encounter for screening mammogram for malignant neoplasm of breast; E78.9 Disorder of lipoprotein metabolism, unspecified

== ENCOUNTER → 2024-07-06 09:39 | Outpatient (BNVA) | payer BC, SELFPAY | PROVIDERS: PCP Physician Assistant; Visit Provider Physician Assistant ==

== ENCOUNTER 2024-09-12 12:59 | Outpatient (AMB) | payer BC, SELFPAY ==
[2024-09-12 13:03] VITALS: BP 138/80; PULSE 79; BMI 36.5
--- NOTE | 2024-09-12 13:03 | MHC.OFFVIS ---
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 She is now preop for a total knee replacement and presents for cardiology follow-up preop clearance. Today she reports that has been under high stress at work. She is emotionally upset and tearful at this visit due to things that her boss has been saying. 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 Physically she has been feeling well. She denies having any chest discomfort at rest or with activity. She will get short of breath if she over exerts but relates this to deconditioning. She has no shortness of breath with general ADLs, no PND, orthopnea or edema. No palpitations, lightheadedness, presyncope, syncope, falls. She does have bilateral knee discomfort with ambulation. She is hopeful to have her knee replacement surgery as soon as possible. She periodically checks blood pressure at home. She has been taking her hydrochlorothiazide as directed. [facility] Medical History (Updated 09/12/24 @ 14:37 by ALBERT Garza) Short of breath on exertion Chest pain HTN (hypertension) Borderline high blood pressure Seasonal allergies Ear infection Benign neoplasm of left breast Ectopic Arthritis GERD (gastroesophageal reflux disease) Obesity (BMI 30-39.9) Surgical History History of breast biopsy Family History Father Prostate cancer CAD (coronary artery disease) Mother CAD (coronary artery disease) Sister Hypertension Colorectal cancer Social History Housing: House Patient Tobacco Use Status: Never used Tobacco e-Cigarette/Vaping Use: Never Used Second Hand Smoke Exposure: No service: No Current occupational status: employed Current occupation: Right Handed Cognitive needs: No Hearing needs: No Vision needs: Yes Review of Systems Const All systems reviewed & are unremarkable except as noted in HPI and below ENT Denies dizziness Card Denies chest pain, Denies chest pain at rest, Denies chest pain with activity, Denies rapid heart rate, Denies pedal edema, Denies edema, Denies leg edema, Denies lightheadedness, Denies palpitations, Denies dyspnea, Denies dyspnea on exertion and Denies orthopnea Resp Denies cough, Denies dyspnea and Denies dyspnea on exertion GI Denies hematochezia and Denies change in stool character Musc Details: knee pains with walking Denies abnormal gait, Denies limited range of motion, Denies muscle cramps, Denies muscle weakness, Denies numbness, Denies radiating pain into limb, Denies stiffness and Denies tingling Neuro Denies abnormal gait, Denies dizziness, Denies numbness and Denies tingling Endo Denies palpitations Physical Exam Vital Signs: BMI result Body Mass Index 36.5 Const General: cooperative, healthy appearing, comfortable and no acute distress Orientation/consciousness: patient oriented x3 Neck Neck: Yes normal visual inspection Resp Effort & Inspection: normal respiratory effort Auscultation: clear to auscultation bilaterally, no crackles, no rales, no rhonchi and no wheezes Cardio Jugular venous distension: no JVD Rate: regular rate Rhythm: regular rhythm Heart sounds: S1 normal heart sound present, S2 normal heart sound present, no murmurs and no rubs Neuro General: patient oriented x3 Extrem General: Yes normal to inspection and No no pedal edema Psych Appearance: grossly normal Mental Status: mental status grossly normal Speech and movement: Normal speech and movement present Office Procedures EKG Details: Today, read by me, normal sinus rhythm, no acute ST or T-wave abnormalities, rate 79, QTC 431 milliseconds [id number], Complete Assessment & Plan Assessment & Plan (1) HTN (hypertension): Code(s): I10 - Essential (primary) hypertension Category: Medical Qualifiers: Hypertension type: primary hypertension Qualified Code(s): I10 - Essential (primary) hypertension Plan: In the last year she has had elevated blood pressure readings with a newer diagnosis of hypertension. She had been started on hydrochlorothiazide and readings are better controlled. Blood pressure today 138/80. Home readings have ranged 130-150 systolic. Labs done 07/05/2024 showed potassium 4.2, creatinine 0.76. Instructed on reduction in salt, the benefits of weight loss and increasing physical activity as tolerated. Stress reduction would also be beneficial. Will have her continue hydrochlorothiazide at 25 mg daily. She will continue to monitor blood pressures. If her systolic is consistently running greater than 140 then she will likely need an additional antihypertensive agent added. Reviewed this with her. Cardiology follow-up 6 months, sooner if needed. (2) Short of breath on exertion: Code(s): R06.02 - Shortness of breath Category: Medical Plan: She does report some shortness of breath with exertional activities. No shortness of breath with normal ADLs. She relates this symptom to deconditioning. She has arthritis in her knees bilaterally and needs to undergo bilateral replacements. This limits her activity levels. An echocardiogram was done on 02/25/2024 showing EF 60-65%, no regional wall motion abnormality and normal valves. An exercise nuclear stress test was done on 05/22/2024 with exercise 5 minutes, moderate shortness of breath, no EKG changes of ischemia. Myocardial perfusion imaging is probably normal, there is a reversible distal anterior perfusion defect which could be related to soft tissue attenuation. Based on that result a CTA of the coronaries was ordered by the provider that saw her last visit. Patient was unable to complete this test as she has significant claustrophobia. At this time she has no anginal sounding symptoms. Discussed with Dr. Tom. No need to pursue CTA of the coronaries are at this time. (3) Obesity (BMI 30-39.9): Code(s): E66.9 - Obesity, unspecified Category: Medical Plan: Current BMI 36.5. Activity is limited by knee arthritis and pain. She is hopeful that once her surgery is completed her physical activity can be increased. (4) Preop cardiovascular exam: Code(s): Z01.810 - Encounter for preprocedural cardiovascular examination Category: Medical Plan: Preop for total knee replacement with Dr. Mcgowan from [facility]. Surgery to be done at [facility]. Patient can be cleared with low to intermediate risk. Continue antihypertensive. Call/consult Cardiology if needed. (5) Emotional upset: Code(s): R45.89 - Other symptoms and signs involving emotional state Category: Medical Plan: Patient is emotionally upset at this visit due to things that were said to her at work today. She is tearful and I allowed her to spent time talking. An additional 25 minutes was spent with her for this reason. Plan Time spent on chart review, documentation, interview and assessment Coding Level of Care Code Est Pt Level 5 (00363) Diagnoses Primary hypertension I10 Hypertension type: primary hypertension Short of breath on exertion R06.02 Obesity (BMI 30-39.9) E66.9 Preop cardiovascular exam Z01.810 Emotional upset R45.89 CPT Codes EKG - CPT: [id number], Complete ([id number]) Time Spent (min) 45
== END 2024-09-12 13:56 | disposition home or self-care (01) ==
PROVIDERS: PCP Physician Assistant; Visit Provider Nurse Practitioner Family
DX: I10 Essential (primary) hypertension (principal); R06.02 Shortness of breath; E66.9 Obesity, unspecified; Z68.36 Body mass index [BMI] 36.0-36.9, adult; R45.89 Other symptoms and signs involving emotional state; Z01.810 Encounter for preprocedural cardiovascular examination
CPT/HCPCS: 93010; 99215

== ENCOUNTER → 2024-09-12 12:59 | Outpatient (BNVA) | payer BC, SELFPAY | PROVIDERS: PCP Physician Assistant; Visit Provider Nurse Practitioner Family | DX: Z01.810 Encounter for preprocedural cardiovascular examination (principal); I10 Essential (primary) hypertension; R06.02 Shortness of breath; R45.89 Other symptoms and signs involving emotional state; E66.9 Obesity, unspecified; Z68.36 Body mass index [BMI] 36.0-36.9, adult | CPT/HCPCS: 93005 ==

== ENCOUNTER 2025-01-03 08:14 | Outpatient (REF) | payer BC, SELFPAY ==
--- OUTSIDE RECORDS SUMMARY | 2025-01-03 08:24 | XMS_ITS | Clinical Summary ---
Author Organization [facility] Address [address] [place] [address] Care Team Providers Care Crab Steamer Name Role Phone Unknown Primary Care Provider [phone] Medications No known medications Active Problems No known active problems Social History Tobacco Use Types Packs/Day Years Used Date Smoking Tobacco: Never Assessed Sex and Gender Information Value Date Recorded Sex Assigned at Not on file Gender Identity Not on file Sexual Orientation Not on file Plan of Treatment Health Maintenance Due Date Last Done Comments Hepatitis C Virus Screening 1965 HIV Screening 01/12/1977 DTaP/Tdap/Td Vaccines (1 - Tdap) 01/12/1983 Pap Smear (Ages 21-65) 01/12/1985 Mammogram 2004 Colonoscopy 01/12/2009 Pneumococcal Vaccines 50+ (1 of 1 - PCV) 01/12/2014 Zoster (Shingles) Vaccine (1 of 2) 01/12/2014 Influenza Vaccine 05/04/2024 COVID-19 Vaccine ( - 2023-2 5 season) 2024 RSV Vaccine 60 years and old er and Patients (1 - 1-dose 75+ series) 01/12/2039 Hepatitis B Vaccines Aged Out No long er eligible based on patient's age to complete this topic Pneumococcal Vaccine: Pediat stanislav (0-5 Years) and At-Risk Patients (6 to 49 Years) Aged Out No longer eligible b ased on patient's age to complete this topic Care Teams Crab Steamer Relationship Specialty Start Date End Date Unknown Unknow Provider Address PCP - General 10/04/21
[2025-01-03 09:59] LABS: Hematocrit 37.6 % (37.0-47.0); Hemoglobin 12.4 g/dl (12.0-16.0); Mean Corpuscular Hemoglobin 27.3 pg (27.0-33.0); Mean Corpuscular Volume 82.6 fL (80.0-98.0); Mean Platelet Volume 11.1 fL (9.4-12.3); Platelet Count 288 X10*3/uL (160-400); Red Blood Count 4.55 X10*6/uL (4.20-5.50); Red Cell Distribution Width 14.3 % (11.0-16.0); White Blood Count 6.1 X10*3/uL (4.8-10.8)
[2025-01-03 10:24] LABS: Alanine Aminotransferase 17 U/L (0-31); Albumin Level 3.8 g/dL (3.5-5.0); Alkaline Phosphatase 92 U/L (39-117); Anion Gap 10 (12-20); Aspartate Amino Transferase 19 U/L (5-31); Bilirubin Total 0.6 mg/dL (0.0-1.0); Blood Urea Nitrogen 17 mg/dL (9-16); Calcium 9.2 mg/dL (8.4-10.2); Carbon Dioxide 26 mmol/L (22-29); Chloride 106 mmol/L (96-108); Estimated Glomerular Filt Rate > 60; Glucose Fasting 86 mg/dL (60-99); Potassium 3.4 mmol/L (3.3-5.1); Sodium 139 mmol/L (135-145); Total Protein 6.6 g/dL (6.5-8.0)
[2025-01-03 10:46] LABS: Creatinine Urine 373.04 mg/dL; Microalbum/Creatinine Ratio Ur 8.8 ug/mg cr (<30)
== END 2025-01-03 08:15 | disposition home or self-care (01) ==
LOC: HO.10HDL 08:14
PROVIDERS: Visit Provider Physician Assistant
DX: I10 Essential (primary) hypertension (principal)
CPT/HCPCS: 36415; 80053; 82043; 82570; 85027

== ENCOUNTER 2025-01-04 10:20 | Outpatient (AMB) | payer BC, SELFPAY ==
--- NOTE | 2025-01-04 10:22 | A.OFFPC_ITS ---
Vital Signs 01/04/25 10:28 Height 5 ft 5 in Weight 215 lb 2 oz BMI 35.8 BP 120/86 Blood Pressure Location Lt brachial Position Sitting Pulse 104 H Pulse Source Pulse Oximeter Temp 96.9 F Temp Source Temporal Artery Scan Pulse Oximetry (%) 98 Oxygen Delivery Method Room Air Intake Visit Reasons: annual exam Bale Opener Required: No Accompanied by: Self / Same As Patient Allergies ragweed Allergy (Unknown, Uncoded 01/04/25 10:31) Allergic rhinitis Medication List - Last Reconciled 01/04/25 by Jon Maldonado PA-C acetaminophen ER (Tylenol 8 Hour) 650 mg PO Q12H 30 days blood pressure monitor (Blood Pressure Kit) As directed hydrochlorothiazide 25 mg PO DAILY Tobacco use date assessed: 01/04/25 Dental Screening Dental Screen Date: 01/04/25 Did you have a dental visit in the last 12 months?: Yes Did you have a dental problem in the last 6 months where you did not have access to dental care?: No Was dental information given to patient?: Patient has dentist HPI annual exam HPI Details Patient is a 59-year-old female here today for a routine annual physical . Patient has a past medical history si gnificant for bilateral knee osteoarthritis, major depressive disorder, obesity and elevated blood pressure readings . Hypertension: Today in office blood pressure normal. Has followed [facility] and has underwent EKG and echocardiogram which were normal. She has undergone a cardiac stress test which was normal as well. She continues on hydrochlorothiazide and seems blood pressure stable. .. Class II Obesity: Patient's BMI today at 35.8. She does understand her BMI is over 35. She does admit to dietary indiscretion .. Bilateral knee osteoarthritis: just had knee replacement surgery in Nov 2024 in his recovering well. She is in physical therapy. She did not a great experience at [facility]. Mammogram: Up-to-date with mammogram, done at [facility]- Had abnormality on mammo in right breast. Colon cancer screening: Colonoscopy done in 2022, repeat 5 years due to family history colon cancer. Need New GI Specialist. 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 GERD (gastroesophageal reflux disease) Obesity (BMI 30-39.9) Surgical History History of breast biopsy Family History Father Prostate cancer CAD (coronary artery disease) Mother CAD (coronary artery disease) Sister Hypertension Colorectal cancer Social History (Updated 01/04/25 @ 10:39 by Jon Maldonado PA-C) Housing: House Alcohol intake: never Patient Tobacco Use Status: Never used Tobacco e-Cigarette/Vaping Use: Never Used Second Hand Smoke Exposure: No service: No Current occupational status: employed Current occupation: Right Handed Cognitive needs: No Hearing needs: No Vision needs: Yes Questionnaire PHQ-9 Over the last 2 weeks, how often have you been bothered by any of the following problems? 1. Little interest or pleasure in doing things: not at all 2. Feeling down, depressed, or hopeless: not at all 3. Trouble falling or staying asleep, or sleeping too much: not at all 4. Feeling tired or having little energy: several days 5. Poor appetite or overeating: several days 6. Feeling bad about yourself - or that you are a failure or have let yourself or your family down: not at all 7. Trouble concentrating on things, such as reading the newspaper or watching te levision: several days 8. Moving or speaking so slowly that other people could have noticed. Or the opposite - being so fidgety or restless that you have been moving around a lot more than usual: not at all 9. Thoughts that you would be better off or of hurting yourself in some way: not at all Total score: 3 Depression Screening Interpretation: Positive Depression Screening Follow-up: Existing condition Depression Screening Done: Yes 86975 - PHQ-9 Billing: Yes Source: Developed by Drs. Travis Guadalupe, Leia Smalls, Syed Preston and colleagues, with an educational trina from [employer]. Thrive Questionnaire Date Thrive assessed: 01/04/25 I am a: Patient What is your living situation today?: I have a steady place to live Within the past 12 months, did the food you bought not last and you didn't have the money to get more?: Never true Within the past 12 months, did you worry whether your food would run out before you got money to buy more?: Never true Do you have trouble paying for medicines?: No Do you have trouble getting transportation to medical appointments?: No Do you have trouble paying your heating and electricity bill?: No Do you have trouble taking care of your child, family member or friend?: No Do you have trouble with day-to-day activities such as bathing, preparing meals, shopping, managing finances, etc.?: No Are you currently unemployed and looking for a job?: No Are you interested in more education?: No Please select the resources that you would like help with: None Currently or been in a relationship where the following occur: No concerns reported THRIVE Score: 0 AUDIT C Alcohol Use Questionnaire (AUDIT-C) 1. How often do you have a drink containing alcohol?: Never 3. How often do you have six or more drinks on one occasion?: Never Total Score: 0 CIARAN-7 AMB Questionnaire CIARAN-7 Date CIARAN - 7 assessed: 01/04/25 Feeling nervous, anxious, or on edge: 0 = Not at all Not being able to stop or control worryin = Not at all Worrying too much about different things: 0 = Not at all Trouble relaxin = Not at all Being so restless that it is hard to sit still: 0 = Not at all Becoming easily annoyed or irritable: 0 = Not at all Feeling afraid as if something awful might happen: 0 = Not at all Total CIARAN-7 score (0-4 normal; 5-9 mild; 10-14 moderate; 15-21 severe): 0 Source: Developed by Drs. Travis Guadalupe, Leia Smalls, Syed Preston and colleagues, with an educational trina from [employer]. CIARAN-7 Assessment Billing CIARAN-7 Assessment Tool: CIARAN-7 Assessment 32709 Review of Systems Const Denies body aches, Denies chills, Denies excessive sweating, Denies fatigue, Denies fever(s) and Denies headache(s) Eyes Denies blurry vision ENT Denies dysphagia, Denies vertigo, Denies dizziness, Denies headache(s), Denies hearing loss and Denies tinnitus Card Denies chest pain, Denies chest pain with activity, Denies syncope, Denies irregular heart rhythm and Denies dyspnea Resp Denies chest congestion, Denies cough, Denies hemoptysis, Denies dyspnea and Denies wheezing GI Denies abdominal pain, Denies melena, Denies hematochezia, Denies coffee ground emesis, Denies dysphagia, Denies diarrhea, Denies nausea and Denies vomiting Denies urinary frequency, Denies dysuria, Denies urinary hesitancy and Denies urinary urgency Musc Denies arthralgias, Denies limited range of motion, Denies muscle cramps and Denies muscle weakness Skin/Breast Denies rash and Denies skin ulcer Neuro Denies Abnormal speech present, Denies confusion, Denies vertigo, Denies dizziness, Denies syncope, Denies headache(s), Denies memory loss and Denies seizure-like activity Psych Denies anxiety, Denies confusion, Denies depression, Denies memory loss, Denies panic attacks and Denies paranoia Endo Denies excessive sweating, Denies fatigue, Denies flushing, Denies polydipsia and Denies polyuria Aller/Immun Denies wheezing Physical exam (Primary Care) Vital Signs: Last Vital Signs Temp 96.9 F 01/04/25 10:28 Pulse 104 H 01/04/25 10:28 BP 120/86 01/04/25 10:28 Pulse Ox 98 01/04/25 10:28 Oxygen Delivery Method Room Air 01/04/25 10:28 BMI result Body Mass Index 35.8 BMI Assessment/Plan discussion: High BMI High, discussed plan: lifestyle, weight reduction, dietary and physical activity Tobacco/Smoking Status: Tobacco use Status Tobacco use date assessed 01/04/25 01/04/25 10:25 Patient Tobacco Use Status Never used Tobacco 01/04/25 10:39 e-Cigarette/Vaping Use Never Used 01/04/25 10:39 PHQ-9: PHQ-9 Score PHQ-9: Total score 3 01/04/25 10:33 Depression Screening Interpretation: Positive Depression Screening Follow-up: Existing condition Thrive Assessment: Date of Thrive Assessment Date Thrive assessed 01/04/25 01/04/25 10:25 Currently or been in a relationship where the following occur: No concerns reported Const General: cooperative, comfortable, no acute distress, alert and awake; No confusion Orientation/consciousness: oriented to person, oriented to place, patient oriented x3 and No confusion HENMT Head: Yes normocephalic Ears: external ears normal and TM's normal bilaterally Face and sinus: No sinus tenderness Mouth: Normal oral and palatal mucosa present and tongue normal Teeth and gingiva: dentition normal and gingiva normal Throat: Yes posterior oropharynx normal, Yes tonsils normal and Yes uvula midline Eyes Conjunctivae: conjunctivae normal Sclerae: sclerae normal Pupils: Equal, round and reactive pupils present EOM: EOMs intact bilaterally Direct Ophthalmoscopy: No no photophobia Neck Neck: Yes no lymphadenopathy, No tender and Yes no JVD Thyroid: Thyroid normal Carotids: no bruits Chest Chest palpation & inspection: no tenderness Resp Effort & Inspection: normal respiratory effort, no audible wheezes, not labored and no stridor Auscultation: no crackles, no rales, no rhonchi and no wheezes Cardio Jugular venous distension: no JVD Rate: regular rate, not bradycardic and not tachycardic Rhythm: regular rhythm Bruits: no carotid bruits Peripheral pulses: Peripheral pulses 2+ throughout GI Inspection: Yes normal to inspection, No abdominal wall ecchymosis and No visible herniation Palpation (GI): Soft to palpation, nontender, no guarding, not rigid and No hepatosplenomegaly present Auscultation: normoactive bowel sounds General: Yes no CVA tenderness Back/Spine/Pelvis Back: no CVA tenderness and No back tenderness Cervical Spine: cervical ROM normal Thoracic/Lumbar Spine: thoracic and lumbar spine normal to inspection, straight leg raise negative bilaterally, No thoraco-lumbar ROM limited and No lumbar spinal tenderness Skin Lesions: no lesions Rashes: no rashes Wounds: no wounds Neuro General: oriented to person, oriented to place, patient oriented x3, CN's II-XI intact bilaterally and No confusion Cranial nerves: Yes Equal, round and reactive pupils present and Yes Normal accommodation reflex present Cognition (Neuro): normal cognition Speech: No Abnormal speech present Gait exam (Neuro): Normal gait present Motor exam (neuro): 5/5 motor strength present throughout Extrem Right upper extremity: full ROM; no cyanosis Left upper extremity: full ROM; no cyanosis Right lower extremity: no edema Left lower extremity: no edema Psych Appearance: grossly normal Mental Status: mental status grossly normal Affect: normal affect Attitude: cooperative Thought process: Normal thought process present Coding Level of Care Code Est Pt Prev Care 40-64y(50587) Diagnoses Annual physical exam Z00.00 MDD (major depressive disorder), recurrent episode, moderate F33.1 Class 2 obesity E66.812 Status post right partial knee replacement Z96.651 Borderline high cholesterol E78.9 Primary hypertension I10 Hypertension type: primary hypertension Additional Codes CIARAN-7 Assessment Billing - CIARAN-7 Assessment Tool: CIARAN-7 Assessment 49222 ([id number]) PHQ-9 - 06159 - PHQ-9 Billing: Yes ([id number]) Assessment & Plan Assessment & Plan (1) Annual physical exam: Code(s): Z00.00 - Encounter for general adult medical examination without abnormal findings Category: Medical Plan: as per HPI (2) MDD (major depressive disorder), recurrent episode, moderate: Code(s): F33.1 - Major depressive disorder, recurrent, moderate Category: Medical Plan: Patient does have a history of major depressive disorder, she is not interested in medication or mental health therapy at this time. She does have a offer relationship with her spouse whom most of her troubles come from. (3) Class 2 obesity: Code(s): E66.812 - Obesity, class 2 Category: Medical Plan: Patient does understand her BMI is over 35 and will work on being more physically active and adapt to better eating habits to reduce her weight. (4) Status post right partial knee replacement: Code(s): Z96.651 - Presence of right artificial knee joint Category: Surgical Plan: As per HPI patient is 2 months status post right total knee arthroplasty. Has followed up with orthopedic surgeon and is healing well. She continues in physical therapy. She does understand it is an 8-12 month recovery process. (5) Borderline high cholesterol: Code(s): E78.9 - Disorder of lipoprotein metabolism, unspecified Category: Medical Plan: Patient does have a history of borderline high cholesterol. Most recent lipid panel showing good control over total cholesterol and LDL with dietary modifications. Will continue to follow lipid panel. (6) HTN (hypertension): Code(s): I10 - Essential (primary) hypertension Category: Medical Qualifiers: Hypertension type: primary hypertension Qualified Code(s): I10 - Essential (primary) hypertension Plan: Patient's blood pressure acceptable today in office. Will continue his current dose of hydrochlorothiazide with goal blood pressure to remain below 140/90 Orders: Orders Vitamin A Today F32.A - Depression, unspecified, R53.83 - Other fatigue Vitamin E Today F32.A - Depression, unspecified, R53.83 - Other fatigue Vitamin B1 Today F32.A - Depression, unspecified, R53.83 - Other fatigue Vitamin C Today F32.A - Depression, unspecified, R53.83 - Other fatigue Vitamin B6 Today F32.A - Depression, unspecified, R53.83 - Other fatigue Vitamin D 25-OH Total Today F32.A - Depression, unspecified, R53.83 - Other fatigue Vitamin B12 and Folate Today E53.8 - Deficiency of other specified B group vitamins, F32.A - Depression, unspecified, R53.83 - Other fatigue Lipid Panel Today E78.9 - Disorder of lipoprotein metabolism, unspecified Medications: Refilled hydrochlorothiazide 25 mg PO DAILY 90 tabs 1RF Patient Instructions: Goal: Blood pressure to remain below 140/90 Barriers: Adherence to physical activity and healthy eating habits
[2025-01-04 10:28] VITALS: BP 120/86; PULSE 104; TEMP 36.1; O2SAT 98; BMI 35.8
--- OUTSIDE RECORDS SUMMARY | 2025-01-04 11:16 | XMS_ITS ---
Author Name [facility] Organization Unknown Encounters Encounter Type Encounter Reason Primary Diagnosis Location Date Ambulatory Contact with and (suspected) exposure to covid-19 [facility] 06/02/2022 Ambulatory Contact with and (suspected) exposure to covid-19 [facility] 03/23/2022 Care Team Organization Name Specialty Phone Email Start Date End Da te [facility] 06/02/2022 06/02/2022 [facility] 06/02/2022
--- OUTSIDE RECORDS SUMMARY | 2025-01-04 11:16 | XMS_ITS | Clinical Summary ---
Author Organization [facility] Address [address] [place] [address] Care Team Providers Care Diversity Specialist Name Role Phone Unknown Primary Care Provider [phone] Medications No known medications Active Problems No [...] age to complete this topic Care Teams Diversity Specialist Relationship Specialty Start Date End Date Unknown Unknow Provider Address PCP - General 10/04/21
== END 2025-01-04 11:06 | disposition home or self-care (01) ==
LOC: HO.HMCH 10:21
PROVIDERS: PCP Physician Assistant; Visit Provider Physician Assistant
DX: Z00.00 Encounter for general adult medical examination without abnormal findings (principal); F33.1 Major depressive disorder, recurrent, moderate; E66.812 Obesity, class 2; Z68.35 Body mass index [BMI] 35.0-35.9, adult; Z96.651 Presence of right artificial knee joint; E78.9 Disorder of lipoprotein metabolism, unspecified; I10 Essential (primary) hypertension

== ENCOUNTER → 2025-01-04 10:20 | Outpatient (BNVA) | payer BC, SELFPAY | PROVIDERS: PCP Physician Assistant; Visit Provider Physician Assistant | DX: Z00.00 Encounter for general adult medical examination without abnormal findings (principal); F33.1 Major depressive disorder, recurrent, moderate; E66.812 Obesity, class 2; Z68.35 Body mass index [BMI] 35.0-35.9, adult; E78.9 Disorder of lipoprotein metabolism, unspecified; I10 Essential (primary) hypertension; Z96.651 Presence of right artificial knee joint | CPT/HCPCS: 96127 ==

== ENCOUNTER 2025-03-15 15:29 | Outpatient (AMB) | payer BC, SELFPAY ==
[2025-03-15 15:43] VITALS: BP 138/80; PULSE 78; BMI 35.2
--- NOTE | 2025-03-15 15:43 | A.OFFVIS_ITS ---
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 Required: No Allergies ragweed Allergy (Unknown, Uncoded 03/15/25 15:46) Allergic rhinitis Medication List - Last Reconciled 03/15/25 by Yoselin Fowler NP-C acetaminophen ER (Tylenol 8 Hour) 650 mg PO Q12H 30 days blood pressure monitor (Blood Pressure Kit) As directed celecoxib (Celebrex) 200 mg PO DAILY hydrochlorothiazide 25 mg PO DAILY HPI HPI 6 mth f/up: Details: Loren is a 60-year-old female with past medical history of obesity, hypertension, nuclear stress test as part of preop clearance, May 2024 with reversible defect thought to be from artifact who then had CTA of the coronary arteries ordered however she was not able to complete due to claustrophobia. She did undergo her total knee replacement without any cardiac complications. She now presents for follow-up. Today she reports that she has been doing very well since her last visit in September. She had her surgery and has been recovering well. She is back to work full-time and anticipates much travel over the next year for her job. She does have arthritis in her left knee and will need surgery on that which she anticipates around November 2024. She has no chest discomfort at rest or with activity. She denies shortness of breath, PND, orthopnea or edema. No palpitations, lightheadedness, presyncope, syncope, falls. Compliant with meds. 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 GERD (gastroesophageal reflux disease) Obesity (BMI 30-39.9) Surgical History History of breast biopsy Family History Father Prostate cancer CAD (coronary artery disease) Mother CAD (coronary artery disease) Sister Hypertension Colorectal cancer Social History Housing: House Alcohol intake: never Patient Tobacco Use Status: Never used Tobacco e-Cigarette/Vaping Use: Never Used Second Hand Smoke Exposure: No service: No Current occupational status: employed Current occupation: Right Handed Cognitive needs: No Hearing needs: No Vision needs: Yes Review of Systems Const All systems reviewed & are unremarkable except as noted in HPI and below ENT Denies dizziness Card Denies chest pain, Denies chest pain at rest, Denies chest pain with activity, Denies rapid heart rate, Denies pedal edema, Denies edema, Denies leg edema, Denies lightheadedness, Denies palpitations, Denies dyspnea, Denies dyspnea on exertion and Denies orthopnea Resp Denies cough, Denies dyspnea and Denies dyspnea on exertion GI Denies hematochezia and Denies change in stool character Musc Denies abnormal gait, Denies limited range of motion, Denies muscle cramps, Denies muscle weakness, Denies numbness, Denies radiating pain into limb, Denies stiffness and Denies tingling Neuro Denies abnormal gait, Denies dizziness, Denies numbness and Denies tingling Endo Denies palpitations Physical Exam Vital Signs: Last Vital Signs Pulse 78 03/15/25 15:43 BP 138/80 03/15/25 15:43 BMI result Body Mass Index 35.2 Const General: cooperative, healthy appearing, comfortable and no acute distress Orientation/consciousness: patient oriented x3 Neck Neck: Yes normal visual inspection and Yes no JVD Carotids: normal carotid upstroke Chest Chest palpation & inspection: normal inspection of the chest Resp Effort & Inspection: normal respiratory effort Auscultation: clear to auscultation bilaterally, no crackles, no rales, no rhonchi and no wheezes Cardio Jugular venous distension: no JVD Rate: regular rate Rhythm: regular rhythm Heart sounds: S1 normal heart sound present, S2 normal heart sound present, no gallops, no murmurs and no rubs Peripheral pulses: Peripheral pulses 2+ throughout Neuro General: patient oriented x3 Extrem General: Yes normal to inspection, No no pedal edema and No calf tenderness Psych Appearance: grossly normal Mental Status: mental status grossly normal Speech and movement: Normal speech and movement present Assessment & Plan Assessment & Plan (1) HTN (hypertension): Code(s): I10 - Essential (primary) hypertension Category: Medical Qualifiers: Hypertension type: primary hypertension Qualified Code(s): I10 - Essential (primary) hypertension Plan: Blood pressure goal less than 130/80. Blood pressure mildly elevated today at 138/80. Labs 01/03/2025 showed potassium 3.4, creatinine 0.69. She continues on hydrochlorothiazide 25 mg daily. Recommended periodic blood pressure checks at home and call if systolic running greater than 140 at which time medication adjustments could be made. Reviewed low-salt diet, weight loss and exercise as tolerated. I (2) Short of breath on exertion: Code(s): R06.02 - Shortness of breath Category: Medical Plan: Prior reports of shortness of breath with activity. Cardiac testing included echocardiogram was done on 02/25/2024 showing EF 60-65%, no regional wall motion abnormality and normal valves. An exercise nuclear stress test was done on 05/22/2024 with exercise 5 minutes, moderate shortness of breath, no EKG changes of ischemia. Myocardial perfusion imaging is probably normal, there is a reversible distal anterior perfusion defect which could be related to soft tissue attenuation. Based on that result a CTA of the coronaries was ordered however she was not able to complete due to claustrophobia. She has not been having increasing symptoms. She tells me that with the exercise program following her knee replacement surgery she has noticed decreased shortness of breath. Encouraged to increase exercise as tolerated as her symptom may be related to deconditioning. (3) Obesity (BMI 30-39.9): Code(s): E66.9 - Obesity, unspecified Category: Medical Plan: Current BMI 35.2. Continue to work on weight loss and increase activity as tolerated. (4) Preop cardiovascular exam: Code(s): Z01.810 - Encounter for preprocedural cardiovascular examination Category: Medical Plan: She anticipates having left total knee replacement around November 2025. Will plan to see her in October to reassess condition, obtain EKG and determine clearance at that time. Plan Time spent on chart review, documentation, interview and assessment Coding Level of Care Code Est Pt Level 4 (83158) Complex EM visit Add On G2211 Diagnoses Primary hypertension I10 Hypertension type: primary hypertension Short of breath on exertion R06.02 Obesity (BMI 30-39.9) E66.9 Preop cardiovascular exam Z01.810 Time Spent (min) 32
--- OUTSIDE RECORDS SUMMARY | 2025-03-15 17:59 | XMS_ITS | Clinical Summary ---
Author Organization [facility] Address [address] [place] [address] Care Team Providers Care Optics Engineer Name Role Phone Unknown Primary Care Provider [phone] Medications No known medications Active Problems No known active problems Social History Tobacco Use Types Packs/Day Years Used Date Smoking Tobacco: Never Assessed Comments Unknown Sex and Gender Information Value Date Recorded Sex Assigned at Not on file Legal Sex Female 12:50 PM EDT Gender Identity Not on file Sexual Orientation Not on file Plan of Treatment Health Maintenance Due Date Last Done Comments Hepatitis C Virus Screening 1965 HIV Screening 01/12/1977 DTaP/Tdap/Td Vaccines (1 - Tdap) 01/12/1983 Pap Smear (Ages 21-65) 01/12/1985 Mammogram 2004 Colonoscopy 01/12/2009 Pneumococcal Vaccines 50+ (1 of 1 - PCV) 01/12/2014 Zoster (Shingles) Vaccine (1 of 2) 01/12/2014 COVID-19 Vaccine ( - 2023-2 5 season) 2024 Influenza Vaccine 05/04/2025 RSV Vaccine 60 years and old er and Patients (1 - 1-dose 75+ series) 01/12/2039 Hepatitis B Vaccines Aged Out No long er eligible based on patient's age to complete this topic Insurance [facility] - O Care Teams Optics Engineer Relationship Specialty Start Date End Date Unknown Unknow Provider Address PCP - General 10/04/21
== END 2025-03-15 16:31 | disposition home or self-care (01) ==
LOC: HO.HCS 15:30
PROVIDERS: PCP Physician Assistant; Visit Provider Nurse Practitioner Family
DX: I10 Essential (primary) hypertension (principal); R06.02 Shortness of breath; E66.9 Obesity, unspecified; Z01.810 Encounter for preprocedural cardiovascular examination
CPT/HCPCS: 99214

== ENCOUNTER 2025-07-06 10:31 | Outpatient (REF) | payer BC, SELFPAY ==
--- OUTSIDE RECORDS SUMMARY | 2025-07-06 11:25 | XMS_ITS | Clinical Summary ---
Author Organization Formerly [facility] Address [address] [place] [address] Care Team Providers Care Chainstitch Pants Outseamer Name Role Phone Unknown Primary Care Provider [phone] Medications No known medications Active Problems No [...] Vaccine (1 of 2) 01/12/2014 Influenza Vaccine 05/04/2025 COVID-19 Vaccine (1 - 2023-2 5 season) 2025 RSV Vaccine 60 years and old er and Patients (1 - 1-dose 75+ series) 01/12/2039 Hepatitis B Vaccines Aged Out No long er eligible based on patient's age to complete this topic Insurance [facility] OUT [facility] - O Care Teams Chainstitch Pants Outseamer Relationship Specialty Start Date End Date Unknown Unknow Provider Address PCP - General 10/04/21
[2025-07-06 12:06] LABS: Cholesterol 200 mg/dL (<200); HDL Cholesterol 60 mg/dL (>40); Triglycerides 158 mg/dL (<150)
[2025-07-06 12:35] LABS: Folate 6.7 ng/mL (> or = 4.0); Vitamin B12 442 pg/mL (200-900)
== END 2025-07-06 10:32 | disposition home or self-care (01) ==
LOC: HO.LAB 10:31
PROVIDERS: Visit Provider Physician Assistant
DX: E53.8 Deficiency of other specified B group vitamins (principal); F32.A Depression, unspecified; R53.83 Other fatigue; E78.9 Disorder of lipoprotein metabolism, unspecified
CPT/HCPCS: 36415; 80061; 82306; 82607; 82746; 84207; 84425; 84446; 84590

== ENCOUNTER 2025-07-09 11:10 | Outpatient (AMB) | payer BC, SELFPAY ==
--- NOTE | 2025-07-09 11:18 | A.OFFPC_ITS ---
Vital Signs 07/09/25 11:19 Height 5 ft 5 in Weight 207 lb 4 oz BMI 34.5 BP 120/78 Blood Pressure Location Lt brachial Position Sitting Pulse 78 Pulse Source Pulse Oximeter Temp 97.1 F Temp Source Temporal Artery Scan Pulse Oximetry (%) 98 Oxygen Delivery Method Room Air Intake Visit Reasons: f/u HLD/ HTN/ lab followup Intake Note: Patient is here to follow up on HLD, HTN, Lab results . 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 Patient has a past medical history si gnificant for bilateral knee osteoarthritis, major depressive disorder, obesity and elevated blood pressure readings, status post total knee arthroplasty Patient has been under lot of stress due dealing with multiple deaths in her family. She does report feeling a bit mentally clouded which may be related to her mental health. We have checked labs including vitamin levels which were all within normal limits as of now. She is considering mental health therapy . Hypertension: Today in office blood pressure normal. Has followed [facility] and has underwent EKG and echocardiogram which were normal. She has undergone a cardiac stress test which was normal as well. She continues on hydrochlorothiazide and seems blood pressure stable. . Borderline high cholesterol: Recent labs showing borderline high cholesterol 200 and LDL of 109. She will continue working on lifestyle and dietary modifications. .. Class II Obesity: Has been able to lose weight since last office visit. Patient's BMI today at 34. She does understand her BMI is over 35. She does admit to dietary indiscretion .. Bilateral knee osteoarthritis: just had knee replacement surgery in Nov 2024 in his recovering well. She is in physical therapy. She did not a great experience at [facility]. .. Laboratory Tests 01/18/23 01/27/24 07/05/24: 20:13 14:08 RBC 5.30 Hgb Hct Creatinine 0.78 Cholesterol LDL Cholesterol, C alc Vitamin B12 582 25-OH Vitamin D To emanuel 36.2 Folate Urine Microalbumin 5.0 07/05/24 01/03/25 07/06/25 14:34 08:20 10:48 RBC 4.55 Hgb 12.4 Hct 42.5 Creatinine 0.76 0.69 Cholesterol 194 200 H LDL Cholesterol, C alc 101 H 109 H Vitamin B12 442 25-OH Vitamin D To emanuel Folate 6.7 Urine Microalbumin 33.0 PFSH Medical History Short of breath on exertion Chest pain HTN (hypertension) Borderline high blood pressure Seasonal allergies Ear infection Benign neoplasm of left breast Ectopic Arthritis GERD (gastroesophageal reflux disease) Obesity (BMI 30-39.9) Surgical History History of total right knee replacement History of breast biopsy Family History Father Prostate cancer CAD (coronary artery disease) Mother CAD (coronary artery disease) Sister Hypertension Colorectal cancer Social History Housing: House Alcohol intake: never Patient Tobacco Use Status: Never used Tobacco e-Cigarette/Vaping Use: Never Used Second Hand Smoke Exposure: No service: No Current occupational status: employed Current occupation: Right Handed Cognitive needs: No Hearing needs: No Vision needs: Yes Questionnaire Thrive Questionnaire Date Thrive assessed: 12/28/24 I am a: Patient What is your living situation today?: I have a steady place to live Within the past 12 months, did the food you bought not last and you didn't have the money to get more?: Never true Within the past 12 months, did you worry whether your food would run out before you got money to buy more?: Never true Do you have trouble paying for medicines?: No Do you have trouble getting transportation to medical appointments?: No Do you have trouble paying your heating and electricity bill?: No Do you have trouble taking care of your child, family member or friend?: No Do you have trouble with day-to-day activities such as bathing, preparing meals, shopping, managing finances, etc.?: No Are you currently unemployed and looking for a job?: No Are you interested in more education?: No Please select the resources that you would like help with: None Currently or been in a relationship where the following occur: No concerns reported THRIVE Score: 0 CIARAN-7 AMB Questionnaire CIARAN-7 Date CIARAN - 7 assessed: 01/04/25 Source: Developed by Drs. Travis Guadalupe, Leia Smalls, Syed Preston and colleagues, with an educational trina from [employer]. Review of Systems Const Denies headache(s) Eyes Denies loss of vision ENT Denies vertigo, Denies dizziness, Denies headache(s) and Denies sore throat Card Denies chest pain, Denies leg edema and Denies lightheadedness Resp Denies cough, Denies hemoptysis and Denies wheezing GI Denies abdominal pain, Denies melena, Denies constipation, Denies diarrhea and Denies vomiting Denies urinary frequency, Denies dysuria and Denies urinary urgency Musc Denies arthralgias, Denies joint swelling, Denies numbness and Denies tingling Neuro Denies Abnormal speech present, Denies behavioral changes, Denies vertigo, Denies dizziness, Denies headache(s), Denies loss of vision, Denies memory loss, Denies numbness and Denies tingling Psych Denies anxiety, Denies behavioral changes, Denies depression, Denies memory loss and Denies panic attacks Eric/Lymph Denies easy bleeding and Denies easy bruising Aller/Immun Denies wheezing Physical exam (Primary Care) Vital Signs: Last Vital Signs Temp 97.1 F 07/09/25 11:19 Pulse 78 07/09/25 11:19 BP 120/78 07/09/25 11:19 Pulse Ox 98 07/09/25 11:19 Oxygen Delivery Method Room Air 07/09/25 11:19 BMI result Body Mass Index 34.5 BMI Assessment/Plan discussion: High BMI High, discussed plan: lifestyle, weight reduction, dietary and physical activity Tobacco/Smoking Status: Tobacco use Status Tobacco use date assessed 07/09/25 07/09/25 11:25 Patient Tobacco Use Status Never used Tobacco 07/09/25 11:18 e-Cigarette/Vaping Use Never Used 07/09/25 11:18 Thrive Assessment: Date of Thrive Assessment Date Thrive assessed 12/28/24 07/09/25 11:18 Currently or been in a relationship where the following occur: No concerns reported Const Other: Obese General: healthy appearing, no acute distress, alert and awake Nutritional Appearance: well nourished Orientation/consciousness: oriented to person, oriented to place and oriented to time HENMT Ears: TM's normal bilaterally General nose exam: Normal nasal mucous membranes and turbinates present Eyes Conjunctivae: conjunctivae normal Sclerae: sclerae normal Pupils: Equal, round and reactive pupils present Neck Neck: Yes no lymphadenopathy and Yes no JVD Thyroid: Thyroid normal Carotids: no bruits Resp Effort & Inspection: normal respiratory effort and not tachypneic Auscultation: no crackles, no rales, no rhonchi and no wheezes Cardio Rate: regular rate Rhythm: regular rhythm Heart sounds: no murmurs and normal S1 and S2 GI Palpation (GI): Soft to palpation, nontender, no hepatomegaly and no splen omegaly Auscultation: normal bowel sounds Skin General skin exam: no rashes or lesions noted and dry skin Neuro General: oriented to person, oriented to place and oriented to time Cranial nerves: Yes Equal, round and reactive pupils present Speech: No Abnormal speech present Gait exam (Neuro): Normal gait present Motor exam (neuro): no tremor noted Extrem Right upper extremity: full ROM Left upper extremity: full ROM Right lower extremity: full ROM; no edema Left lower extremity: full ROM; no edema Psych Mental Status: mental status grossly normal Speech and movement: Normal speech and movement present Affect: normal affect Attitude: cooperative Thought process: Normal thought process present Coding Level of Care Code Est Pt Level 4 (22057) Diagnoses MDD (major depressive disorder), recurrent episode, moderate F33.1 Borderline high cholesterol E78.9 Primary hypertension I10 Hypertension type: primary hypertension Class 1 obesity E66.811 Assessment & Plan Assessment & Plan (1) MDD (major depressive disorder), recurrent episode, moderate: Code(s): F33.1 - Major depressive disorder, recurrent, moderate Category: Medical Plan: The patient is encouraged to seek therapy to address grief and mental health concerns, given the recent loss of her and previous family losse (2) Borderline high cholesterol: Code(s): E78.9 - Disorder of lipoprotein metabolism, unspecified Category: Medical Plan: Patient does have a history of borderline high cholesterol. Most recent lipid panel showing good control over total cholesterol and LDL with dietary modifications. Will continue to follow lipid panel. (3) HTN (hypertension): Code(s): I10 - Essential (primary) hypertension Category: Medical Qualifiers: Hypertension type: primary hypertension Qualified Code(s): I10 - Essential (primary) hypertension Plan: Patient's blood pressure acceptable today in office. Will continue his current dose of hydrochlorothiazide with goal blood pressure to remain below 140/90 (4) Class 1 obesity: Code(s): E66.811 - Obesity, class 1 Category: Medical Plan: Patient has lost weight since last office visit. Patient does understand her BMI remains above 30 will continue trying to be more physically active and adapting to better eating habits to reduce his weight Orders: Orders Complete Blood Count no Diff Today Z13.1 - Encounter for screening for diabetes mellitus Microalbumin, Random (w Creat) Today I10 - Essential (primary) hypertension MM screening mammo BI Today Z12.31 - Encounter for screening mammogram for malignant neoplasm of breast Lipid Panel Today E78.9 - Disorder of lipoprotein metabolism, unspecified Comprehensive [place]. Panel Fast Today Z13.1 - Encounter for screening for diabetes mellitus Medications: Refilled hydrochlorothiazide 25 mg PO DAILY 90 tabs 1RF
[2025-07-09 11:19] VITALS: BP 120/78; PULSE 78; TEMP 36.2; O2SAT 98; BMI 34.5
--- OUTSIDE RECORDS SUMMARY | 2025-07-09 13:47 | XMS_ITS | Clinical Summary ---
Author Organization [facility] Address [address] [place] [address] Care Team Providers Care Rigger Helper Name Role Phone Unknown Primary Care Provider [phone] Medications No known medications Active Problems No [...] patient's age to complete this topic Insurance [facility] OUT [facility] - O Care Teams Rigger Helper Relationship Specialty Start Date End Date Unknown Unknow Provider Address PCP - General 10/04/21
== END 2025-07-09 12:14 | disposition home or self-care (01) ==
LOC: HO.HMCH 11:11
PROVIDERS: PCP Physician Assistant; Visit Provider Physician Assistant
DX: E78.9 Disorder of lipoprotein metabolism, unspecified (principal); F33.1 Major depressive disorder, recurrent, moderate; E66.811 Obesity, class 1; Z68.34 Body mass index [BMI] 34.0-34.9, adult; I10 Essential (primary) hypertension